=== PATIENT | male | born 1940 | race African-American/Black ===

== ENCOUNTER 2016-05-30 15:06 | Inpatient (IN) | payer OTHER, BC ==
[2016-05-30] MEDS ORDERED: SODIUM CHLORIDE 1,000 ML IV ONE (15:57)
--- NOTE | 2016-05-30 16:02 | PDOC ---
History of Present Illness - General History Source: Patient, Family, Primary Care Provider Exam Limitations: No Limitations - History of Present Illness Initial Comments: 05/30/16 16:26 The patient is a 76 year old male presenting with his , with a significant past medical history of Diabetes, AFIB, HTN, HLD, GERD, anemia and Abdominal hernia, who presents to the emergency department with abdominal pain onset today. He notes that he has a hernia near his umbilical region that protrude today and remained for 2 hours before seeing his PMD, who reduced the hernia, resolving his abdominal pain. His PMD sent him into the ED for further evaluation. He states that he has been able to pass gas. He also states that he had one episode of vomit today after eating some meat. The patient denies chest pain, shortness of breath, headache and dizziness. Denies fever, chills, nausea, vomit, diarrhea and constipation. Denies dysuria, frequency, urgency and hematuria. Allergies: None Past surgical history: Prostate hernia Social history: No alcohol, tobacco or drug use reported PMD - Dr. Hensley <Sheldon Frankel - Last Filed: 05/30/16 16:26> <Tacho Mojica - Last Filed: 05/30/16 16:58> <Chey Krause - Last Filed: 05/30/16 21:44> - General Chief Complaint: Pain, Acute Stated Complaint: ABD PAIN (PCP SENT) Time Seen by Provider: 05/30/16 15:43 Past History <Sheldon Frankel - Last Filed: 05/30/16 16:26> - Past Medical History Anemia: Yes Asthma: No Cancer: No Cardiac Disorders: Yes (a fib) CVA: No COPD: No CHF: No Dementia: No Diabetes: Yes (NIDDM) GI Disorders: Yes (GERD) Disorders: No HTN: Yes Hypercholesterolemia: Yes Liver Disease: No Seizures: No Thyroid Disease: No - Immunization History Immunization Up to Date: Yes - Psycho/Social/Smoking Cessation Hx Suicidal Ideation: No Smoking Status: No Smoking History: Never smoked Have you smoked in the past 12 months: No Number of Cigarettes Smoked Daily: 0 Hx Alcohol Use: No Drug/Substance Use Hx: No Substance Use Type: None Hx Substance Use Treatment: No <Tacho Mojica - Last Filed: 05/30/16 16:58> <Chey Krause - Last Filed: 05/30/16 21:44> - Past Medical History Allergies/Adverse Reactions: Allergies Allergy/AdvReac Type Severity Reaction Status Date / Time No Known Allergies Allergy Verified 05/30/16 15:10 Home Medications: Ambulatory Orders Rabeprazole Sodium [Aciphex (Nf) 20 MG] 20 mg NR DAILY #0 tablet.ec 06/02/11 Rosuvastatin [Crestor -] 10 mg PO HS #0 tablet 06/02/11 Warfarin Na [Coumadin] 4 mg PO DAILY #0 tablet 06/02/11 Cholecalciferol (Vitamin D3) [Vitamin D3] 2,000 unit PO DAILY 05/30/16 Cyanocobalamin [Vitamin B12 -] 1,000 mcg PO DAILY 05/30/16 Ferrous Sulfate 325 mg PO DAILY 05/30/16 Metoprolol Succinate [Toprol Xl -] 25 mg PO DAILY 05/30/16 Nebivolol [Bystolic -] 5 mg PO DAILY 05/30/16 Review of Systems - Review of Systems Constitutional: No: Chills, Fever Cardiac (ROS): No: Chest Pain ABD/GI: Yes: See HPI, Nausea, Vomiting All Other Systems: Reviewed and Negative <Tacho Mojica - Last Filed: 05/30/16 16:58> *Physical Exam - Vital Signs Last Vital Signs Temp Pulse Resp BP Pulse Ox 97.6 F 57 L 20 135/87 96 05/30/16 15:10 05/30/16 15:10 05/30/16 15:10 05/30/16 15:10 05/30/16 15:10 - Physical Exam Comments: 05/30/16 16:26 GENERAL: The patient is awake, alert, and fully oriented, in no acute distress. HEAD: Normal with no signs of trauma. EYES: Pupils equal, round and reactive to light, extraocular movements intact, sclera anicteric, conjunctiva clear with no pallor. ENT: Ears normal, nares patent, oropharynx clear without exudates. Moist mucous membranes. NECK: Normal range of motion, supple without lymphadenopathy, JVD, or masses. LUNGS: Breath sounds equal, clear to auscultation bilaterally. No wheeze/ crackles. HEART: Regular rate and rhythm, normal S1 and S2 without murmur or rub. ABDOMEN: +Healed incision scar in abdomen from prior robotic surgery Superficial surgical scar with palpable ventral wall hernia which is reducible at bedside. Soft/nontender/nondistended. BS wnl. No guarding or rebound. No hepatosplenomegaly. EXTREMITIES: Normal range of motion, no edema. No clubbing or cyanosis. No cords , erythema, or tenderness. NEUROLOGICAL: Cranial nerves II through XII grossly intact. Normal speech, normal gait. PSYCH: Normal mood, normal affect. SKIN: Warm, Dry, normal turgor, no rashes or lesions noted. <Sheldon Frankel - Last Filed: 05/30/16 16:26> - Vital Signs Last Vital Signs Temp Pulse Resp BP Pulse Ox 97.6 F 57 L 20 135/87 96 05/30/16 15:10 05/30/16 15:10 05/30/16 15:10 05/30/16 15:10 05/30/16 15:10 <Tacho Mojica - Last Filed: 05/30/16 16:58> - Vital Signs Last Vital Signs Temp Pulse Resp BP Pulse Ox 98.6 F 51 L 16 153/83 97 05/30/16 19:42 05/30/16 19:42 05/30/16 19:42 05/30/16 19:42 05/30/16 19:42 <Chey Krause - Last Filed: 05/30/16 21:44> ED Treatment Course - LABORATORY CBC & Chemistry Diagram: 05/30/16 16:35 05/30/16 16:35 - RADIOLOGY Radiology Studies Ordered: Category Date Time Status ABDOMEN & PELVIS CT WITH CONTR [CT] Stat CT Scan 05/30/16 15:57 Ordered <Tacho Mojica - Last Filed: 05/30/16 16:58> - LABORATORY CBC & Chemistry Diagram: 05/30/16 16:35 05/30/16 16:35 - ADDITIONAL ORDERS Additional order review: Laboratory Results 05/30/16 05/30/16 05/30/16 19:00 16:35 16:35 INR 3.67 H Sodium Potassium Chloride Carbon Dioxide Anion Gap BUN Creatinine Creat Clearance w eGFR Random Glucose Calcium Total Bilirubin AST ALT Alkaline Phosphatase Total Protein Albumin Lipase Blood Type B POSITIVE B POSITIVE Antibody Screen Negative 05/30/16 16:35 INR Sodium 141 Potassium 4.1 Chloride 104 Carbon Dioxide 28 Anion Gap 9 BUN 20 H Creatinine 1.2 Creat Clearance w eGFR 59.18 Random Glucose 123 H D Calcium 9.2 Total Bilirubin 0.6 D AST 26 ALT 30 D Alkaline Phosphatase 61 D Total Protein 7.4 Albumin 3.9 Lipase 153 Blood Type Antibody Screen 05/30/16 16:35 RBC 4.87 MCV 91.0 MCHC 33.4 RDW 16.0 H MPV 8.5 Neutrophils % 75.3 D Lymphocytes % 16.9 D Monocytes % 6.4 Eosinophils % 0.8 Basophils % 0.6 - Medications Given in the ED: ED Medications Discontinued Medications Generic Name Dose Route Start Last Admin Trade Name Freq PRN Reason Stop Dose Admin Sodium Chloride 1,000 mls @ 1,000 mls/hr 05/30/16 15:57 05/30/16 17:09 Normal Saline - IV 05/30/16 16:56 1,000 mls/hr ONCE ONE Administration <Chey Krause - Last Filed: 05/30/16 21:44> Medical Decision Making - Medical Decision Making 05/30/16 16:00 A portion of this note was documented by scribe services under my direction. I have reviewed the details of the note, within reason, and agree with the documentation with the following case summary and management plan written by me. 76-year-old male with history of robotic prostate surgery presents from Dr. Hensley's office for further evaluation of likely incarcerated ventral wall hernia. Patient had acute onset of painful swelling to his abdomen around 1 PM, persistent until he presented to Dr. Hensley's office and the hernia was reduced. During that time, developed symptoms of nausea/vomiting with persistent pain, now resolved. Vital signs normal. Exam as noted with spontaneous ventral wall hernia that is reducible. No peritoneal findings at this time. 76-year-old male with presentation concerning for incarcerated ventral wall hernia, now reduced and Dr. Hensley's office. labs including lactate CTAP surgery consult/dispo 05/30/16 16:44 Discussed with Surgical PA, will consult. WBC normal. 05/30/16 16:58 Plan with Surgical PA Cadan is to f/u CTAP, discuss dispo with Dr. Olmstead, who is aware of the case. Pt signed out to oncoming ED physician to f/u the results, reassess the patient , and discuss plan with Dr. Olmstead. <Tacho Mojica - Last Filed: 05/30/16 16:58> *DC/Admit/Observation/Transfer - Attestations Scribe Attestion: 05/30/16 16:27 Documentation prepared by Sheldon Frankel, acting as medical safety director for Tacho Mojica MD. <Sheldon Frankel - Last Filed: 05/30/16 16:26> <Tacho Mojica - Last Filed: 05/30/16 16:58> - Discharge Dispostion Admit: Yes <Chey Krause - Last Filed: 05/30/16 21:44> Diagnosis at time of Disposition: Abdominal wall hernia - Referrals Referrals: Paresh Hensley MD [Primary Care Provider] -
[2016-05-30 16:45] LABS: BASOPHIL 0.6 % (0-2.0); EOSINOPHIL 0.8 % (0-4.5); MCH 30.4 pg (25.7-33.7); MCHC 33.4 g/dl (32.0-35.9); MEAN PLT VOLUME 8.5 fl (7.5-11.1); NEUTROPHILS 75.3 % (42.8-82.8); PLATELET COUNT 178 K/MM3 (134-434); WHITE BLOOD COUNT 6.2 K/mm3 (4.0-10.0)
[2016-05-30 17:00] LABS: INR 3.67 (0.82-1.09); PROTHROMBIN TIME (PATIENT) 41.4 SEC (9.98-11.88)
[2016-05-30 17:29] LABS: ALBUMIN 3.9 g/dl (3.4-5.0); BILIRUBIN,TOTAL 0.6 mg/dL (0.2-1.0); CALCIUM 9.2 mg/dL (8.5-10.1); CREATININE 1.2 mg/dL (0.7-1.3); TOT PROT 7.4 g/dl (6.4-8.2)
[2016-05-30] MEDS ORDERED: ONDANSETRON *ODT* 4 MG TABLET SL PRN (21:22)
[2016-05-30] MEDS ORDERED: ACETAMINOPHEN 325 MG TABLET (FP) PO PRN (21:22)
[2016-05-30] MEDS ORDERED: morphine CARPU-JECT 4 MG/1 ML DISP.SYRIN IVPUSH PRN (21:22)
[2016-05-30] MEDS: ROSUVASTATIN CA 10 MG TABLET (FP) PO SCH (23:05)
[2016-05-31 02:14] LABS: MCH 30.4 pg (25.7-33.7); MCHC 33.2 g/dl (32.0-35.9); MEAN CELL VOLUME 91.6 fl (80-96); MEAN PLT VOLUME 8.2 fl (7.5-11.1); PLATELET COUNT 139 K/MM3 (134-434); WHITE BLOOD COUNT 6.2 K/mm3 (4.0-10.0)
[2016-05-31 02:29] LABS: INR 3.69 (0.82-1.09); PROTHROMBIN TIME (PATIENT) 41.7 SEC (9.98-11.88)
[2016-05-31 03:08] VITALS: BMI 35.0
[2016-05-31] MEDS: PANTOPRAZOLE 40 MG TABLET (FP) PO SCH (09:26)
[2016-05-31] MEDS ORDERED: NEBIVOLOL 5 MG TABLET (FP) PO SCH (10:00)
--- NOTE | 2016-05-31 10:04 | HP ---
Admitting History and Physical - Primary Care Physician PCP: Paresh Hensley - Admission History of Present Illness: 05/30/16 16:26 The patient is a 76 year old male presenting with his , with a significant past medical history of Diabetes, AFIB, HTN, HLD, GERD, anemia and Abdominal hernia, who presents to the emergency department with abdominal pain onset today. He notes that he has a hernia near his umbilical region that protrude today and remained for 2 hours before seeing his PMD, who reduced the hernia, resolving his abdominal pain. His PMD sent him into the ED for further evaluation. He states that he has been able to pass gas. He also states that he had one episode of vomit today after eating some meat. The patient denies chest pain, shortness of breath, headache and dizziness. Denies fever, chills, nausea, vomit, diarrhea and constipation. Denies dysuria, frequency, urgency and hematuria. Allergies: None Past surgical history: Prostate hernia Social history: No alcohol, tobacco or drug use reported PMD - Dr. Hensley in ER the hernia was reduced again by ER doctor per patinet and no more pain, patient didnot take couamdin yesterday History Source: Patient - Past Medical History Cardiovascular: Yes: AFIB, HTN, Hyperlipdemia Gastrointestinal: Yes: GERD, Other (hernia) - Past Surgical History Additional Past Surgical History: robotic prostate surgery - Smoking History Smoking history: Never smoked Have you smoked in the past 12 months: No Aproximately how many cigarettes per day: 0 - Alcohol/Substance Use Hx Alcohol Use: No Home Medications - Allergies Allergies/Adverse Reactions: Allergies Allergy/AdvReac Type Severity Reaction Status Date / Time No Known Allergies Allergy Verified 05/30/16 15:10 - Home Medications Home Medications: Ambulatory Orders Rabeprazole Sodium [Aciphex (Nf) 20 MG] 20 mg NR DAILY #0 tablet.ec 06/02/11 Rosuvastatin [Crestor -] 10 mg PO HS #0 tablet 06/02/11 Warfarin Na [Coumadin] 4 mg PO DAILY #0 tablet 06/02/11 Cholecalciferol (Vitamin D3) [Vitamin D3] 2,000 unit PO DAILY 05/30/16 Cyanocobalamin [Vitamin B12 -] 1,000 mcg PO DAILY 05/30/16 Ferrous Sulfate 325 mg PO DAILY 05/30/16 Metoprolol Succinate [Toprol Xl -] 25 mg PO DAILY 05/30/16 Nebivolol [Bystolic -] 5 mg PO DAILY 05/30/16 Review of Systems - Review of Systems Respiratory: reports: No Symptoms Gastrointestinal: reports: No Symptoms Genitourinary: reports: No Symptoms Physical Examination Vital Signs: Vital Signs Temperature 97.8 F 05/30/16 21:44 Pulse Rate 50 L 05/30/16 21:44 Respiratory Rate 20 05/30/16 21:44 Blood Pressure 148/86 05/30/16 21:44 O2 Sat by Pulse Oximetry (%) 97 05/30/16 21:44 Constitutional: Yes: Calm Cardiovascular: Yes: Regular Rate and Rhythm, S1, S2 Respiratory: Yes: CTA Bilaterally Gastrointestinal: Yes: Normal Bowel Sounds, Soft, Hernia (reduced), Other (no tednerness) Edema: No Neurological: Yes: Alert, Oriented Labs: CBC, BMP 05/31/16 02:02 Imaging - Results Cat Scan: Report Reviewed (small loop of bowel in left supraumbilcal hernia not incarcerated) Problem List - Problems (1) Abdominal wall hernia Assessment/Plan: cardiac clearance will need to be NPO once he is on surgical list hold coumadin surgical eval Code(s): K43.9 - VENTRAL HERNIA WITHOUT OBSTRUCTION OR GANGRENE (2) Hypertension Assessment/Plan: bystolic Code(s): I10 - ESSENTIAL (PRIMARY) HYPERTENSION (3) Chronic a-fib Assessment/Plan: rate control bystolic hold couamdin let it drift down Code(s): I48.2 - CHRONIC ATRIAL FIBRILLATION (4) Hyperlipidemia Assessment/Plan: statin Code(s): E78.5 - HYPERLIPIDEMIA, UNSPECIFIED
--- NOTE | 2016-05-31 15:40 | CONSULT ---
Consult Consult Specialty:: Thoracic Surgery Referred by:: Dr. Paresh Hensley Reason for Consultation:: Hiatal hernia - History of Present Illness Chief Complaint: Abdominal pain History of Present Illness: A 76-year-old male with history of atrial fibrillation, on Coumadin, who initially presented to [facility] with abdominal pain. He was found to have abdominal hernia which was reduced by Dr. Hensley. He was admitted to [facility] for surgical evaluation. His workup including CT abd/pel confirmed abdominal hernia with incarcerated small bowel. He was also noticed to have hiatal hernia. He reports that he has been doing relatively well except mild GERD in which he is taking PPI for symptomatic relief. He denies f/c, n/v, constipation, bowel habit changes, SOB, GERBER, cough, sputum production, wheezing, weight loss, and chest pain. - History Source History Provided By: Patient Limitations to Obtaining History: No Limitations - Past Medical History Cardio/Vascular: Yes: AFIB, HTN, Hyperlipdemia Gastrointestinal: Yes: GERD, Other (hernia) Hepatobiliary: No: Cirrhosis, Cholelithiasis, Cholecystitis, Choledocholithiasis , Hepatitis A, Hepatitis B, Hepatitis C, Other Renal/: No: Renal Failure, Renal Inusuff, BPH, Cancer, Hematuria, Hemodialysis , Neurogenic Bladder, Renal Calculi, UTI, Other Heme/Onc: No: Anemia, B12 Deficiency, Bleeding Disorder, Cancer, Current Chemotherapy, Current Radiation Therapy, Hemochromatosis, Hypercoaguable State, Myeloproliferative Synd, Sickle Cell Disease, Sickle Cell Trait, Thrombocytopenia, Other Infectious Disease: No: AIDS, C-Diff, Herpes Zoster, HIV, MRSA, STD's, Tuberculosis, VREF, Other Psych: No: Addictions, Anxiety, Bipolar, Depression, Panic, Psychosis, Schizophrenia, Other Musculoskeletal: No: Bursitis, Chronic low back pain, Hemiparesis, Hemiplegia, Osteoarthritis, Paraplegia, Other Rheumatology: No: Fibromyalgia, Gout, Lupus, Rheumatoid Arthritis, Sarcoidosis, Vasculitis, Other ENT: No: Allergic Rhinitis, Sinusitis, Other Endocrine: No: Cook's Disease, Margarito's Disease, Diabetes Insipidus, Diabetes Mellitus, Hyperparathyroidism, Hyperthyroidism, Hypothyroidism, Osteopenia, SIADH, Other Dermatology: No: Basal Cell, Cellulitis, Eczema, Melanoma, Psoriasis, Squamous Cell, Other - Past Surgical History Past Surgical History: Yes: Prostatectomy (robotic-assisted prostatectomy at (2013)) - Alcohol/Substance Use Hx Alcohol Use: No - Smoking History Smoking history: Never smoked Have you smoked in the past 12 months: No Aproximately how many cigarettes per day: 0 - Social History Usual Living Arrangement: With Spouse Home Medications - Allergies Allergies/Adverse Reactions: Allergies Allergy/AdvReac Type Severity Reaction Status Date / Time No Known Allergies Allergy Verified 05/30/16 15:10 - Home Medications Home Medications: Ambulatory Orders Rabeprazole Sodium [Aciphex (Nf) 20 MG] 20 mg NR DAILY #0 tablet.ec 06/02/11 Rosuvastatin [Crestor -] 10 mg PO HS #0 tablet 06/02/11 Warfarin Na [Coumadin] 4 mg PO DAILY #0 tablet 06/02/11 Cholecalciferol (Vitamin D3) [Vitamin D3] 2,000 unit PO DAILY 05/30/16 Cyanocobalamin [Vitamin B12 -] 1,000 mcg PO DAILY 05/30/16 Ferrous Sulfate 325 mg PO DAILY 05/30/16 Metoprolol Succinate [Toprol Xl -] 25 mg PO DAILY 05/30/16 Nebivolol [Bystolic -] 5 mg PO DAILY 05/30/16 Family Disease History - Family Disease History Family History: Unremarkable Review of Systems - Review of Systems Constitutional: reports: No Symptoms Eyes: reports: No Symptoms HENT: reports: No Symptoms Neck: reports: No Symptoms Cardiovascular: reports: No Symptoms Respiratory: reports: No Symptoms Gastrointestinal: reports: Abdominal Pain, Bloating, Other (GERD) Genitourinary: denies: No Symptoms, Burning, Discharge, Dysuria, Flank Pain, Frequency, Hematuria, Incontinence, Lesions, Menses, Pain, Testicular Mass, Testicular Pain, Testicular Swelling, Urgency, Vaginal Bleeding, Other Breasts: reports: No Symptoms Reported Musculoskeletal: reports: No Symptoms Integumentary: reports: No Symptoms Neurological: reports: No Symptoms Endocrine: reports: No Symptoms Hematology/Lymphatic: reports: Easily Bruised (on Coumadin) Psychiatric: reports: No Symptoms Physical Exam Vital Signs: Vital Signs Temperature 98.0 F 05/31/16 14:00 Pulse Rate 67 05/31/16 14:00 Respiratory Rate 17 05/31/16 14:00 Blood Pressure 113/74 05/31/16 09:00 O2 Sat by Pulse Oximetry (%) 97 05/30/16 21:44 Constitutional: Yes: No Distress Eyes: Yes: WNL HENT: Yes: WNL Neck: Yes: WNL Cardiovascular: Yes: WNL Respiratory: Yes: WNL Gastrointestinal: Yes: Soft, Abdomen, Obese, Palpable Mass (abdominal hernia), Tenderness ...Rectal Exam: Yes: Deferred Renal/: Yes: WNL Musculoskeletal: Yes: WNL Extremities: Yes: WNL Edema: No Integumentary: Yes: WNL Neurological: Yes: WNL Psychiatric: Yes: WNL Labs: CBC, BMP 05/31/16 02:02 Imaging - Results Chest X-ray: Report Reviewed, Image Reviewed Cat Scan: Report Reviewed, Image Reviewed Problem List - Problems (1) Hiatal hernia Assessment/Plan: A 76-year-old male with history of atrial fibrillation, on Coumadin, GERD and hiatal hernia, who presented to [facility] with abdominal hernia with incarcerated small bowel. His radiographic studies ([id number]) and laboratory results were reviewed and discussed with the patient and his in extensive detail. He appears to have chronic paraesophageal hernia (Type III) with mild reflux symptoms which is well controlled with medication. He was given multiple options including close observation with serial CT scans, endoscopy, and conservative medical treatment and definitive surgical management ( paraesophageal hernia repair and Jaime fundoplication). He wished to resolve abdominal hernia first on this hospital admission. He is aware and understood his medical and surgical condition. All questions were answered in satisfactory manner. He remains stable clinically with no sepsis or respiratory distress at the present time. 1. Continue supportive care 2. f/u general surgery for abdominal hernia 3. Discussed with Dr. Hensley 4. Thank you for the interesting consult. Please call Thoracic Surgery service for further surgical issues. Code(s): K44.9 - DIAPHRAGMATIC HERNIA WITHOUT OBSTRUCTION OR GANGRENE
--- NOTE | 2016-05-31 16:09 | CONSULT ---
[id number] patient for an incarcerated incisional hernia. HISTORY OF PRESENT ILLNESS: 76 yo M presented to the ED complaining of abdominal pain for one day. The pain was located in at the site of a previous incision from a robotic prostatectomy near the patient's umbilicus. The patient states he has had this hernia and it usually reduces on its own. Prior to coming to the ED the patient noticed the hernia had a large bulge, was very firm and painful. The patient saw Dr. Hensley in the office and had the hernia reduced before going to the ED for further evaluation. The pain resolved when the hernia was reduced. The patient states he is not passing gas, denies nausea , vomiting, diarrhea, constipation. The patient states he would like to have this hernia fixed and understands the risk of having bowel within the hernia. PMH: DM, AFIB, HTN, HLD, GERD, anemia PSH: Robotic-assisted prostatectomy 2012 Social history: No alcohol, tobacco or drug use reported PMD - Dr. Hensley Allergies: NKDA Medications: Medication Instructions Recorded Rabeprazole Sodium [Aciphex (Nf) 20 mg NR DAILY #0 tablet.ec 06/02/11 20 MG] Rosuvastatin [Crestor -] 10 mg PO HS #0 tablet 06/02/11 Warfarin Na [Coumadin] 4 mg PO DAILY #0 tablet 06/02/11 Cholecalciferol (Vitamin D3) 2,000 unit PO DAILY 05/30/16 [Vitamin D3] Cyanocobalamin [Vitamin B12 -] 1,000 mcg PO DAILY 05/30/16 Ferrous Sulfate 325 mg PO DAILY 05/30/16 Metoprolol Succinate [Toprol Xl -] 25 mg PO DAILY 05/30/16 Nebivolol [Bystolic -] 5 mg PO DAILY 05/30/16 REVIEW OF SYSTEMS: CONSTITUTIONAL: Absent: fever, chills, diaphoresis, generalized weakness, malaise, loss of appetite, weight change CARDIOVASCULAR: Absent: chest pain, syncope, lightheadedness, peripheral edema RESPIRATORY: Absent: cough, shortness of breath, dyspnea with exertion, orthopnea, wheezing, stridor, hemoptysis GASTROINTESTINAL: Absent: abdominal distension, nausea, vomiting, diarrhea, constipation, melena, hematochezia GENITOURINARY: Absent: dysuria, frequency, urgency, hesitancy, hematuria, flank pain, genital pain MUSCULOSKELETAL: Absent: myalgia, arthralgia, joint swelling, back pain, neck pain SKIN: Absent: rash, itching, pallor HEMATOLOGIC/IMMUNOLOGIC: Absent: easy bleeding, easy bruising, lymphadenopathy, frequent infections NEUROLOGIC: Absent: headache, focal weakness or paresthesias, dizziness, unsteady gait, seizure, mental status changes, bladder or bowel incontinence PSYCHIATRIC: Absent: anxiety, depression, suicidal or homicidal ideation, hallucinations. PHYSICAL EXAMINATION Vital Signs Temperature 98.0 F 05/31/16 14:00 Pulse Rate 67 05/31/16 14:00 Respiratory Rate 05/31/16 14:00 Blood Pressure 113/74 05/31/16 09:00 O2 Sat by Pulse Oximetry (%) 97 05/30/16 21:44 GENERAL: Awake, alert, and fully oriented, in no acute distress. HEAD: Normal with no signs of trauma. EYES: Pupils equal, round and reactive to light, sclera anicteric, conjunctiva clear. NECK: Normal range of motion, supple without lymphadenopathy, JVD, or masses. LUNGS: Breath sounds equal, clear to auscultation bilaterally. No wheezes, and no crackles. No accessory muscle use. HEART: Regular rate and rhythm, normal S1 and S2 without murmur, rub or gallop. ABDOMEN: Well-healed port site/incision scars from previous prostatectomy, reduced hernia, soft, nontender, not distended, normoactive bowel sounds, no guarding, no rebound, no masses. MUSCULOSKELETAL: Normal range of motion at all joints. No bony deformities or tenderness. No CVA tenderness. UPPER EXTREMITIES: 2+ pulses, warm, well-perfused. No cyanosis. Cap refill <2 seconds. No peripheral edema. LOWER EXTREMITIES: Warm, well-perfused. No calf tenderness. No peripheral edema. NEUROLOGICAL: Normal speech, gait not observed. PSYCH: Cooperative. Good eye contact. Appropriate mood and affect. SKIN: Warm, dry, normal turgor, no rashes or lesions noted. LABS: Laboratory Results - last 24 hr 05/31/16 05/31/16 02:02 02:02 WBC 6.2 RBC 4.60 Hgb 14.0 Hct 42.1 MCV 91.6 MCHC 33.2 RDW 16.0 H Plt Count 139 D MPV 8.[address]: Moderate-sized hiatal hernia- Patient seen by Dr. Parks Small bowel loop within supraumbilical ventral hernia <Lizzie Stephenson - Last Filed: 05/31/16 16:38> Consultation: REQUESTING PROVIDER: CONSULT REQUEST: We have been asked to surgically evaluate this patient for ( specify). HISTORY OF PRESENT ILLNESS: REVIEW OF SYSTEMS: CONSTITUTIONAL: Absent: fever, chills, diaphoresis, generalized weakness, malaise, loss of appetite, weight change CARDIOVASCULAR: Absent: chest pain, syncope, palpitations, irregular heart rate, lightheadedness , peripheral edema RESPIRATORY: Absent: cough, shortness of breath, dyspnea with exertion, orthopnea, wheezing, stridor, hemoptysis GASTROINTESTINAL: Absent: abdominal pain, abdominal distension, nausea, vomiting, diarrhea, constipation, melena, hematochezia GENITOURINARY: Absent: dysuria, frequency, urgency, hesitancy, hematuria, flank pain, genital pain MUSCULOSKELETAL: Absent: myalgia, arthralgia, joint swelling, back pain, neck pain SKIN: Absent: rash, itching, pallor HEMATOLOGIC/IMMUNOLOGIC: Absent: easy bleeding, easy bruising, lymphadenopathy, frequent infections NEUROLOGIC: Absent: headache, focal weakness or paresthesias, dizziness, unsteady gait, seizure, mental status changes, bladder or bowel incontinence PSYCHIATRIC: Absent: anxiety, depression, suicidal or homicidal ideation, hallucinations. PHYSICAL EXAMINATION Vital Signs Temperature 98.1 F 06/01/16 09:00 Pulse Rate 50 L 06/01/16 09:00 Respiratory Rate 20 06/01/16 09:00 Blood Pressure 108/70 06/01/16 09:00 O2 Sat by Pulse Oximetry (%) 97 05/31/16 22:00 GENERAL: Awake, alert, and fully oriented, in no acute distress. HEAD: Normal with no signs of trauma. EYES: Pupils equal, round and reactive to light, sclera anicteric, conjunctiva clear. NECK: Normal range of motion, supple without lymphadenopathy, JVD, or masses. LUNGS: Breath sounds equal, clear to auscultation bilaterally. No wheezes, and no crackles. No accessory muscle use. HEART: Regular rate and rhythm, normal S1 and S2 without murmur, rub or gallop. ABDOMEN: Soft, nontender, not distended, normoactive bowel sounds, no guarding, no rebound, no masses. No hepatomegaly or splenomegaly. MUSCULOSKELETAL: Normal range of motion at all joints. No bony deformities or tenderness. No CVA tenderness. UPPER EXTREMITIES: 2+ pulses, warm, well-perfused. No cyanosis. Cap refill <2 seconds. No peripheral edema. LOWER EXTREMITIES: 2+ pulses, warm, well-perfused. No calf tenderness. No peripheral edema. NEUROLOGICAL: Normal speech, gait not observed. PSYCH: Cooperative. Good eye contact. Appropriate mood and affect. SKIN: Warm, dry, normal turgor, no rashes or lesions noted. LABS: Laboratory Results - last 24 hr 06/01/16 07:15 INR 2.80 H SURGERY ATTENDING Patient seen and examined. Agree wit TEE Stephenson's evaluation and assessment. <Mayo Olmstead - Last Filed: 06/01/16 11:46> Problem List - Problems (1) Abdominal wall hernia Assessment/Plan: Ventral incisional hernia containing small bowel OR for robotic incisional hernia repair with Dr. Olmstead, possibly Monday06/03/16 OR once INR less than 2, continue to hold Coumadin, follow INR Cardiac/medical clearance/optimization Consent to be obtained Continue sodium controlled diet until night prior to surgery Patient seen and examined with Dr. Olmstead Code(s): K43.9 - VENTRAL HERNIA WITHOUT OBSTRUCTION OR GANGRENE <Lizzie Stephenson - Last Filed: 05/31/16 16:38> Visit type - Case Type Case Type: ED Admission <Lizzie Stephenson - Last Filed: 05/31/16 16:38>
[2016-05-31] MEDS ORDERED: PT OWN MED DRAWER 7, Y5N ONE (20:54)
[2016-05-31] MEDS: ROSUVASTATIN CA 10 MG TABLET (FP) PO SCH (21:49)
[2016-05-31] MEDS: NEBIVOLOL 5 MG TABLET (FP) PO SCH (21:49)
--- NOTE | 2016-05-31 22:30 | CON.CARD ---
Consult Consult Specialty:: Cardiology Referred by:: Dr. Hensley Reason for Consultation:: Cardiac evaluation and cardiac clearance - History of Present Illness Chief Complaint: Abdominal ventral hernia History of Present Illness: Patient is a 76 year old male well known to our service with underlying history of paroxysmal atrial fibrillation, type 2 diabetes mellitus, hypertension, hypercholesterolemia and GERD who presents with abdominal hernia. Patient presented with abdominal pain and a hernia near the umbilicus which was reduced by Dr. Hensley today. He denies chest pain, shortness of breath or palpitation. He denies paroxysmal nocturnal dyspnea or orthopnea. Denies fever or chills. Denies headache or lightheadedness. Cardiology consultation was called for further evaluation and for cardiac clearance. - History Source History Provided By: Patient, Medical Record Limitations to Obtaining History: No Limitations - Past Medical History Cardio/Vascular: Yes: AFIB, CAD, HTN, Hyperlipdemia Gastrointestinal: Yes: GERD, Other (hernia) Endocrine: Yes: Diabetes Mellitus - Past Surgical History Past Surgical History: Yes: Prostatectomy (robotic-assisted prostatectomy at [facility] (2013)) - Alcohol/Substance Use Hx Alcohol Use: No - Smoking History Smoking history: Never smoked Have you smoked in the past 12 months: No Aproximately how many cigarettes per day: 0 - Social History Usual Living Arrangement: With Spouse Home Medications - Allergies Allergies/Adverse Reactions: Allergies Allergy/AdvReac Type Severity Reaction Status Date / Time No Known Allergies Allergy Verified 05/30/16 15:10 - Home Medications Home Medications: Ambulatory Orders Rabeprazole Sodium [Aciphex (Nf) 20 MG] 20 mg NR DAILY #0 tablet.ec 06/02/11 Rosuvastatin [Crestor -] 10 mg PO HS #0 tablet 06/02/11 Warfarin Na [Coumadin] 4 mg PO DAILY #0 tablet 06/02/11 Cholecalciferol (Vitamin D3) [Vitamin D3] 2,000 unit PO DAILY 05/30/16 Cyanocobalamin [Vitamin B12 -] 1,000 mcg PO DAILY 05/30/16 Ferrous Sulfate 325 mg PO DAILY 05/30/16 Metoprolol Succinate [Toprol Xl -] 25 mg PO DAILY 05/30/16 Nebivolol [Bystolic -] 5 mg PO DAILY 05/30/16 Family Disease History - Family Disease History Family History: Denies Review of Systems - Review of Systems Constitutional: denies: Chills, Fever Cardiovascular: denies: Chest Pain, Palpitations, Shortness of Breath Respiratory: denies: Cough, Hemoptysis, Orthopnea, PND, SOB, SOB on Exertion Gastrointestinal: reports: Abdominal Pain, Vomiting. denies: Constipation, Diarrhea, Nausea, Rectal Bleeding, Vomiting Blood Neurological: denies: Dizziness, Headache, Seizure, Syncope Vital Signs: Vital Signs Temperature 98.0 F 05/31/16 14:00 Pulse Rate 67 05/31/16 14:00 Respiratory Rate 17 05/31/16 14:00 Blood Pressure 113/74 05/31/16 09:00 O2 Sat by Pulse Oximetry (%) 97 05/30/16 21:44 Neck: Yes: Supple Respiratory: Yes: CTA Bilaterally Gastrointestinal: Yes: Normal Bowel Sounds, Soft. No: Tenderness Cardiovascular: Yes: Regular Rate and Rhythm JVD: No Carotid Bruit: No PMI: Non-Displaced Heart Sounds: Yes: S1, S2 Murmur: No: Systolic Murmur Edema: No - Other Data Labs, Other Data: CBC, BMP 05/31/16 02:02 INR, PTT INR 3.69 (0.82-1.09) H 05/31/16 02:02 Laboratory Results - last 24 hr 05/31/16 05/31/16 02:02 02:02 WBC 6.2 RBC 4.60 Hgb 14.0 Hct 42.1 MCV 91.6 MCHC 33.2 RDW 16.0 H Plt Count 139 D MPV 8.2 INR 3.69 H CBC,CMP WBC 6.2 K/mm3 (4.0-10.0) 05/31/16 02:02 RBC 4.60 M/mm3 (4.00-5.60) 05/31/16 02:02 Hgb 14.0 GM/dL (11.7-16.9) 05/31/16 02:02 Hct 42.1 % (35.4-49) 05/31/16 02:02 MCV 91.6 fl (80-96) 05/31/16 02:02 MCHC 33.2 g/dl (32.0-35.9) 05/31/16 02:02 RDW 16.0 % (11.9-15.9) H 05/31/16 02:02 Plt Count 139 K/MM3 (134-434) D 05/31/16 02:02 MPV 8.2 fl (7.5-11.1) 05/31/16 02:02 Neutrophils % 75.3 % (42.8-82.8) D 05/30/16 16:35 Lymphocytes % 16.9 % (8-40) D 05/30/16 16:35 Monocytes % 6.4 % (3.8-10.2) 05/30/16 16:35 Eosinophils % 0.8 % (0-4.5) 05/30/16 16:35 Basophils % 0.6 % (0-2.0) 05/30/16 16:35 Sodium 141 mmol/L (136-145) 05/30/16 16:35 Potassium 4.1 mmol/L (3.5-5.1) 05/30/16 16:35 Chloride 104 mmol/L (98-107) 05/30/16 16:35 Carbon Dioxide 28 mmol/L (21-32) 05/30/16 16:35 Anion Gap 9 (8-16) 05/30/16 16:35 BUN 20 mg/dL (7-18) H 05/30/16 16:35 Creatinine 1.2 mg/dL (0.7-1.3) 05/30/16 16:35 Creat Clearance w eGFR 59.18 (>60) 05/30/16 16:35 Random Glucose 123 mg/dL (74-106) H D 05/30/16 16:35 Calcium 9.2 mg/dL (8.5-10.1) 05/30/16 16:35 Total Bilirubin 0.6 mg/dL (0.2-1.0) D 05/30/16 16:35 AST 26 U/L (15-37) 05/30/16 16:35 ALT 30 U/L (12-78) D 05/30/16 16:35 Alkaline Phosphatase 61 U/L (45-117) D 05/30/16 16:35 Total Protein 7.4 g/dl (6.4-8.2) 05/30/16 16:35 Albumin 3.9 g/dl (3.4-5.0) 05/30/16 16:35 Lipase 153 U/L (73-393) 05/30/16 16:35 Sinus rhythm Imaging - Results Cat Scan: Report Reviewed (Abdominal CT hiatal hernia) EKG: Report Reviewed Problem List - Problems (1) Abdominal wall hernia Code(s): K43.9 - VENTRAL HERNIA WITHOUT OBSTRUCTION OR GANGRENE (2) Afib Code(s): I48.91 - UNSPECIFIED ATRIAL FIBRILLATION (3) Hiatal hernia Code(s): K44.9 - DIAPHRAGMATIC HERNIA WITHOUT OBSTRUCTION OR GANGRENE (4) Hyperlipidemia Code(s): E78.5 - HYPERLIPIDEMIA, UNSPECIFIED Qualifiers: Hyperlipidemia type: pure hypercholesterolemia Qualified Code(s): E78.0 - Pure hypercholesterolemia (5) Hypertension Code(s): I10 - ESSENTIAL (PRIMARY) HYPERTENSION Qualifiers: Hypertension type: essential hypertension Qualified Code(s): I10 - Essential (primary) hypertension Assessment/Plan 1. Abdominal hernia 2. Paroxysmal atrial fibrillation 3. HTN 4. Hypercholesterolemia 5. GERD 6. Type 2 diabetes mellitus PLAN: 1. Continue to hold Coumadin and let it drift down before proceeding to surgery. Would not give Vitamin K unless patient is bleeding or surgery is emergent. 2. Continue Bystolic 3. Continue Crestor 4. Surgical input noted Thank you for the consultation Arnold Adler MD
--- NOTE | 2016-05-31 23:12 | EKG ---
Test Reason : Blood Pressure : / mmHG Vent. Rate : 053 BPM Atrial Rate : 053 BPM P-R Int : 252 ms QRS Dur : 138 ms QT Int : 462 ms P-R-T Axes : 018 -29 -09 degrees QTc Int : 433 ms SINUS BRADYCARDIA WITH 1ST DEGREE A-V BLOCK LEFT VENTRICULAR HYPERTROPHY WITH QRS WIDENING ABNORMAL ECG WHEN COMPARED WITH ECG OF 31-MAY-2011 10:52, PREMATURE VENTRICULAR COMPLEXES ARE NO LONGER PRESENT Confirmed by JASEN PAREDES, KYE ([id number]) on 05/31/2016 11:11:47 PM Referred By: Confirmed By:KYE AGGARWAL MD
[2016-06-01 08:15] LABS: INR 2.8 (0.82-1.09); PROTHROMBIN TIME (PATIENT) 31.4 SEC (9.98-11.88)
--- NOTE | 2016-06-01 09:28 | PN ---
Progress Note, Physician - Current Medication List Current Medications: Active Medications Acetaminophen (Tylenol -) 650 mg PO Q6H PRN PRN Reason: FEVER OR PAIN Morphine Sulfate (Morphine Injection -) 4 mg IVPUSH Q3H PRN PRN Reason: PAIN Nebivolol (Bystolic -) 5 mg PO HS [facility] Last Admin: 05/31/16 21:49 Dose: 5 mg Ondansetron HCl (Zofran Odt -) 8 mg SL Q6H PRN PRN Reason: NAUSEA AND/OR VOMITING Pantoprazole Sodium (Protonix -) 40 mg PO DAILY [facility] Last Admin: 05/31/16 09:26 Dose: 40 mg Rosuvastatin Calcium (Crestor -) 10 mg PO [facility] Last Admin: 05/31/16 21:49 Dose: 10 mg - Objective Vital Signs: Vital Signs Temperature 98.0 F 06/01/16 06:00 Pulse Rate 55 L 06/01/16 06:00 Respiratory Rate 20 06/01/16 06:00 Blood Pressure 129/73 06/01/16 06:00 O2 Sat by Pulse Oximetry (%) 97 05/31/16 22:00 Cardiovascular: Yes: Regular Rate and Rhythm Respiratory: Yes: Regular, CTA Bilaterally Gastrointestinal: Yes: Normal Bowel Sounds, Soft Labs: CBC, BMP 05/31/16 02:02 INR, PTT INR 2.80 (0.82-1.09) H 06/01/16 07:15 Problem List - Problems (1) Abdominal wall hernia Assessment/Plan: SURGICAL CONSULT NOTED AND DISCUSSED FOR OR ONCE INR IN RANGE Code(s): K43.9 - VENTRAL HERNIA WITHOUT OBSTRUCTION OR GANGRENE (2) Afib Assessment/Plan: BRIDGE WITH HEPARIN WHEN INR LESS THAN 2 Code(s): I48.91 - UNSPECIFIED ATRIAL FIBRILLATION (3) Hiatal hernia Code(s): K44.9 - DIAPHRAGMATIC HERNIA WITHOUT OBSTRUCTION OR GANGRENE (4) Hyperlipidemia Code(s): E78.5 - HYPERLIPIDEMIA, UNSPECIFIED Qualifiers: Hyperlipidemia type: pure hypercholesterolemia Qualified Code(s): E78.0 - Pure hypercholesterolemia (5) Hypertension Assessment/Plan: CONTROLLED Code(s): I10 - ESSENTIAL (PRIMARY) HYPERTENSION Qualifiers: Hypertension type: essential hypertension Qualified Code(s): I10 - Essential (primary) hypertension
[2016-06-01] MEDS: PANTOPRAZOLE 40 MG TABLET (FP) PO SCH (09:30)
--- NOTE | 2016-06-01 10:27 | PN ---
Progress Note (short form) - Note Progress Note: General Surgery- Dr. Olmstead Patient seen and examined. Patient is doing well, pain has not returned to hernia site. Patient is tolerating his diet without nausea or vomiting. Patient has not had a BM, but is urinating without issue. No complaints. Last Vital Signs Temp Pulse Resp BP Pulse Ox 98.0 F 55 L 20 129/73 97 06/01/16 06:00 06/01/16 06:00 06/01/16 06:00 06/01/16 06:00 05/31/16 22:00 INR, PTT INR 2.80 (0.82-1.09) H 06/01/16 07:15 INR 2.80 from 3.69 yesterday Exam: Gen: NAD, resting comfortably Abd: Soft, nondistended, nontender, hernia still reduced <Lizzie Stephenson - Last Filed: 06/01/16 10:29> - Note Progress Note: Surgery Attending No new complaints. Tolerating diet. Abdomen is soft INR = 2.8 For robotic incisional hernia repair with mesh on 06/03/16 pending acceptable INR. <Mayo Olmstead - Last Filed: 06/01/16 11:43> Problem List - Problems (1) Abdominal wall hernia Assessment/Plan: Continue with plan for OR for robotic incisional hernia repair with Dr. Olmstead when INR in range Continue to hold Coumadin, follow INR Continue sodium controlled diet until night prior to surgery, OR possibly Monday Code(s): K43.9 - VENTRAL HERNIA WITHOUT OBSTRUCTION OR GANGRENE <Lizzie Stephenson - Last Filed: 06/01/16 10:29>
--- NOTE | 2016-06-01 11:36 | PN ---
Progress Note, Physician History of Present Illness: No abd pain, nausea, emesis, tolerating diet. - Current Medication List Current Medications: Active Medications Acetaminophen (Tylenol -) 650 mg PO Q6H PRN PRN Reason: FEVER OR PAIN Morphine Sulfate (Morphine Injection -) 4 mg IVPUSH Q3H PRN PRN Reason: PAIN Nebivolol (Bystolic -) 5 mg PO [facility] Last Admin: 05/31/16 21:49 Dose: 5 mg Ondansetron HCl (Zofran Odt -) 8 mg SL Q6H PRN PRN Reason: NAUSEA AND/OR VOMITING Pantoprazole Sodium (Protonix -) 40 mg PO DAILY [facility] Last Admin: 06/01/16 09:30 Dose: 40 mg Rosuvastatin Calcium (Crestor -) 10 mg PO [facility] Last Admin: 05/31/16 21:49 Dose: 10 mg - Objective Vital Signs: Vital Signs Temperature 98.1 F 06/01/16 09:00 Pulse Rate 50 L 06/01/16 09:00 Respiratory Rate 20 06/01/16 09:00 Blood Pressure 108/70 06/01/16 09:00 O2 Sat by Pulse Oximetry (%) 97 05/31/16 22:00 Constitutional: Yes: No Distress, Calm Neck: Yes: Supple Cardiovascular: Yes: Regular Rate and Rhythm Respiratory: Yes: Regular, CTA Bilaterally Gastrointestinal: Yes: Soft, Hypoactive Bowel Sounds Edema: No Labs: CBC, BMP 05/31/16 02:02 INR, PTT INR 2.80 (0.82-1.09) H 06/01/16 07:15 Problem List - Problems (1) Abdominal wall hernia Code(s): K43.9 - VENTRAL HERNIA WITHOUT OBSTRUCTION OR GANGRENE (2) Afib Code(s): I48.91 - UNSPECIFIED ATRIAL FIBRILLATION Qualifiers: Atrial fibrillation type: paroxysmal Qualified Code(s): I48.0 - Paroxysmal atrial fibrillation (3) Hyperlipidemia Code(s): E78.5 - HYPERLIPIDEMIA, UNSPECIFIED Qualifiers: Hyperlipidemia type: pure hypercholesterolemia Qualified Code(s): E78.0 - Pure hypercholesterolemia (4) Hypertension Code(s): I10 - ESSENTIAL (PRIMARY) HYPERTENSION Qualifiers: Hypertension type: essential hypertension Qualified Code(s): I10 - Essential (primary) hypertension (5) Pre-operative cardiovascular examination Code(s): Z01.810 - ENCOUNTER FOR PREPROCEDURAL CARDIOVASCULAR EXAMINATION Assessment/Plan 1. Pre-op ventral hernia repair 2. Paroxysmal atrial fibrillation 3. HTN 4. Hypercholesterolemia 5. GERD PLAN: 1. Continue to hold Coumadin and let it drift down before proceeding to surgery. Would not give Vitamin K unless patient is bleeding or surgery is emergent. 2. Continue Bystolic 5 qhd 3. Continue Crestor 10 qhs 4. Planned for robotic incisional hernia repair with mesh on 06/03/16 pending acceptable INR.
--- NOTE | 2016-06-01 11:44 | PN ---
Progress Note (short form) - Note Progress Note: Surgery Attending No new complaints. Tolerating diet. Abdomen is soft INR = 2.8 For robotic incisional hernia repair with mesh on 06/03/16 pending acceptable INR.
[2016-06-01] MEDS ORDERED: PT OWN MED DRAWER 7, Y5N ONE (21:17)
[2016-06-01] MEDS: ROSUVASTATIN CA 10 MG TABLET (FP) PO SCH (21:27)
[2016-06-01] MEDS: NEBIVOLOL 5 MG TABLET (FP) PO SCH (21:28)
[2016-06-02] MEDS ORDERED: PT OWN MED DRAWER 7, Y5N ONE ×2 (07:07→21:33)
--- NOTE | 2016-06-02 08:16 | PN ---
Progress Note, Physician Chief Complaint: NO COMPLAINTS TOLERATING PO FEELS BETTER - Current Medication List Current Medications: Active Medications Acetaminophen (Tylenol -) 650 mg PO Q6H PRN PRN Reason: FEVER OR PAIN Morphine Sulfate (Morphine Injection -) 4 mg IVPUSH Q3H PRN PRN Reason: PAIN Nebivolol (Bystolic -) 5 mg PO [facility] Last Admin: 06/01/16 21:28 Dose: 5 mg Ondansetron HCl (Zofran Odt -) 8 mg SL Q6H PRN PRN Reason: NAUSEA AND/OR VOMITING Pantoprazole Sodium (Protonix -) 40 mg PO DAILY [facility] Last Admin: 06/01/16 09:30 Dose: 40 mg Rosuvastatin Calcium (Crestor -) 10 mg PO [facility] Last Admin: 06/01/16 21:27 Dose: 10 mg - Objective Vital Signs: Vital Signs Temperature 97.7 F 06/01/16 18:00 Pulse Rate 55 L 06/01/16 18:00 Respiratory Rate 20 06/01/16 21:00 Blood Pressure 111/71 06/01/16 18:00 O2 Sat by Pulse Oximetry (%) 97 06/01/16 21:00 Constitutional: Yes: Calm Cardiovascular: Yes: S1, S2 Respiratory: Yes: CTA Bilaterally Gastrointestinal: Yes: Normal Bowel Sounds, Soft, Hernia Edema: LLE: Trace, RLE: Trace Labs: CBC, BMP 05/31/16 02:02 INR, PTT INR 2.80 (0.82-1.09) H 06/01/16 07:15 Problem List - Problems (1) Abdominal wall hernia Code(s): K43.9 - VENTRAL HERNIA WITHOUT OBSTRUCTION OR GANGRENE (2) Afib Code(s): I48.91 - UNSPECIFIED ATRIAL FIBRILLATION Qualifiers: Atrial fibrillation type: paroxysmal Qualified Code(s): I48.0 - Paroxysmal atrial fibrillation (3) Hiatal hernia Code(s): K44.9 - DIAPHRAGMATIC HERNIA WITHOUT OBSTRUCTION OR GANGRENE (4) Hyperlipidemia Code(s): E78.5 - HYPERLIPIDEMIA, UNSPECIFIED Qualifiers: Hyperlipidemia type: pure hypercholesterolemia Qualified Code(s): E78.0 - Pure hypercholesterolemia (5) Hypertension Code(s): I10 - ESSENTIAL (PRIMARY) HYPERTENSION Qualifiers: Hypertension type: essential hypertension Qualified Code(s): I10 - Essential (primary) hypertension Assessment/Plan (1) Abdominal wall hernia Assessment/Plan: SURGICAL CONSULT NOTED AND DISCUSSED FOR OR ONCE INR IN RANGE - [facility] Code(s): K43.9 - VENTRAL HERNIA WITHOUT OBSTRUCTION OR GANGRENE (2) Afib Assessment/Plan: BRIDGE WITH HEPARIN WHEN INR LESS THAN 2 [facility] CONSULTED Code(s): I48.91 - UNSPECIFIED ATRIAL FIBRILLATION (3) Hiatal hernia Code(s): K44.9 - DIAPHRAGMATIC HERNIA WITHOUT OBSTRUCTION OR GANGRENE (4) Hyperlipidemia Code(s): E78.5 - HYPERLIPIDEMIA, UNSPECIFIED Qualifiers: Hyperlipidemia type: pure hypercholesterolemia Qualified Code(s): E78.0 - Pure hypercholesterolemia (5) Hypertension Assessment/Plan: CONTROLLED Code(s): I10 - ESSENTIAL (PRIMARY) HYPERTENSION Qualifiers: Hypertension type: essential hypertension Qualified Code(s): I10 - Essential (primary) hypertension [facility]
[2016-06-02 08:30] LABS: BASOPHIL 1.1 % (0-2.0); EOSINOPHIL 2.4 % (0-4.5); MCHC 33.7 g/dl (32.0-35.9); MEAN CELL VOLUME 91.9 fl (80-96); MEAN PLT VOLUME 8.5 fl (7.5-11.1); PLATELET COUNT 136 K/MM3 (134-434)
[2016-06-02 08:43] LABS: INR 2.17 (0.82-1.09); PROTHROMBIN TIME (PATIENT) 24.2 SEC (9.98-11.88)
[2016-06-02 09:01] LABS: ALBUMIN 3.6 g/dl (3.4-5.0); BILIRUBIN,TOTAL 0.8 mg/dL (0.2-1.0); CALCIUM 9.2 mg/dL (8.5-10.1); CREATININE 1.3 mg/dL (0.7-1.3)
[2016-06-02] MEDS: PANTOPRAZOLE 40 MG TABLET (FP) PO SCH (09:41)
--- NOTE | 2016-06-02 11:05 | PN ---
Progress Note, Physician History of Present Illness: No abd pain, nausea, emesis, tolerating diet. - Current Medication List Current Medications: Active Medications Acetaminophen (Tylenol -) 650 mg PO Q6H PRN PRN Reason: FEVER OR PAIN Morphine Sulfate (Morphine Injection -) 4 mg IVPUSH Q3H PRN PRN Reason: PAIN Nebivolol (Bystolic -) 5 mg PO [facility] Last Admin: 06/01/16 21:28 Dose: 5 mg Ondansetron HCl (Zofran Odt -) 8 mg SL Q6H PRN PRN Reason: NAUSEA AND/OR VOMITING Pantoprazole Sodium (Protonix -) 40 mg PO DAILY [facility] Last Admin: 06/02/16 09:41 Dose: 40 mg Rosuvastatin Calcium (Crestor -) 10 mg PO [facility] Last Admin: 06/01/16 21:27 Dose: 10 mg - Objective Vital Signs: Vital Signs Temperature 97.8 F 06/02/16 06:00 Pulse Rate 49 L 06/02/16 06:00 Respiratory Rate 18 06/02/16 06:00 Blood Pressure 105/64 06/02/16 06:00 O2 Sat by Pulse Oximetry (%) 97 06/01/16 21:00 Constitutional: Yes: No Distress, Calm Neck: Yes: Supple Cardiovascular: Yes: Regular Rate and Rhythm Respiratory: Yes: Regular, CTA Bilaterally Gastrointestinal: Yes: Normal Bowel Sounds, Soft Edema: No Labs: CBC, BMP 06/02/16 07:55 06/02/16 07:55 INR, PTT INR 2.17 (0.82-1.09) H 06/02/16 07:55 Problem List - Problems (1) Abdominal wall hernia Code(s): K43.9 - VENTRAL HERNIA WITHOUT OBSTRUCTION OR GANGRENE (2) Afib Code(s): I48.91 - UNSPECIFIED ATRIAL FIBRILLATION Qualifiers: Atrial fibrillation type: paroxysmal Qualified Code(s): I48.0 - Paroxysmal atrial fibrillation (3) Hyperlipidemia Code(s): E78.5 - HYPERLIPIDEMIA, UNSPECIFIED Qualifiers: Hyperlipidemia type: pure hypercholesterolemia Qualified Code(s): E78.0 - Pure hypercholesterolemia (4) Hypertension Code(s): I10 - ESSENTIAL (PRIMARY) HYPERTENSION Qualifiers: Hypertension type: essential hypertension Qualified Code(s): I10 - Essential (primary) hypertension (5) Pre-operative cardiovascular examination Code(s): Z01.810 - ENCOUNTER FOR PREPROCEDURAL CARDIOVASCULAR EXAMINATION Assessment/Plan 1. Pre-op ventral hernia repair 2. Paroxysmal atrial fibrillation with therapeutic INR 3. HTN 4. Hypercholesterolemia 5. GERD PLAN: 1. Continue to hold Coumadin and let it drift down before proceeding to surgery. Would not give Vitamin K unless patient is bleeding or surgery is emergent. 2. Continue Bystolic 5 qhd 3. Continue Crestor 10 qhs 4. Planned for robotic incisional hernia repair with mesh on 06/03/16 pending acceptable INR.
--- NOTE | 2016-06-02 13:11 | PN ---
Progress Note (short form) - Note Progress Note: Pt had BM and is tolerating a regular diet. Vital Signs Period Temp Pulse Resp BP Sys/Dickerson Pulse Ox Last 24 Hr 97.7 F-98.0 F 49-57 17-20 105-129/64-76 97-97 PE: GEN:A&0x3, NAD ABD: soft, non-distended, non-tender INR, PTT INR 2.17 (0.82-1.09) H 06/02/16 07:55 Problem List - Problems (1) Abdominal wall hernia Assessment/Plan: plan for robotic repair tomorrow, npo after midnight. Pt cleared for surgery pending INR results, Today the value is 2.17. S/w Dr. Olmstead and may proceed with the surgery if INR <2. Code(s): K43.9 - VENTRAL HERNIA WITHOUT OBSTRUCTION OR GANGRENE
[2016-06-02] MEDS: SENNOSIDES 8.6MG TABLET (FP) PO SCH ×2 (14:20→21:36)
[2016-06-02] MEDS: NEBIVOLOL 5 MG TABLET (FP) PO SCH (21:36)
[2016-06-02] MEDS: ROSUVASTATIN CA 10 MG TABLET (FP) PO SCH (21:36)
[2016-06-02] MEDS ORDERED: DOCUSATE SODIUM 100 MG CAPSULE (FP) PO SCH (22:00)
--- NOTE | 2016-06-02 22:09 | CONSULT ---
Consult - text type - Consultation Consultation Note: A 76-year-old male with history of atrial fibrillation, on Coumadin, who initially presented with abdominal pain. He was found to have abdominal hernia which was reduced by Dr. Hensley. He was admitted to [facility] for surgical evaluation. His workup including CT abd/pel confirmed abdominal hernia with incarcerated small bowel. He was also noticed to have hiatal hernia. He reports that he has been doing relatively well except mild GERD in which he is taking PPI for symptomatic relief. He denies f/c, n/v, constipation, bowel habit changes, SOB, GERBER, cough, sputum production, wheezing, weight loss, and chest pain. - Past Medical History Cardio/Vascular: Yes: AFIB, HTN, Hyperlipdemia Gastrointestinal: Yes: GERD, Other (hernia) - Past Surgical History Past Surgical History: Yes: Prostatectomy (robotic-assisted prostatectomy at [facility] (2013)) - Smoking History Smoking history: Never smoked - Social History Usual Living Arrangement: With Spouse Home Medications - Allergies Allergies/Adverse Reactions: Allergies Allergy/AdvReac Type Severity Reaction Status Date / Time No Known Allergies Allergy Verified 05/30/16 15:10 - Home Medications Home Medications: Ambulatory Orders Rabeprazole Sodium [Aciphex (Nf) 20 MG] 20 mg NR DAILY #0 tablet.ec 06/02/11 Rosuvastatin [Crestor -] 10 mg PO HS #0 tablet 06/02/11 Warfarin Na [Coumadin] 4 mg PO DAILY #0 tablet 06/02/11 Cholecalciferol (Vitamin D3) [Vitamin D3] 2,000 unit PO DAILY 05/30/16 Cyanocobalamin [Vitamin B12 -] 1,000 mcg PO DAILY 05/30/16 Ferrous Sulfate 325 mg PO DAILY 05/30/16 Metoprolol Succinate [Toprol Xl -] 25 mg PO DAILY 05/30/16 Nebivolol [Bystolic -] 5 mg PO DAILY 05/30/16 Current Medications Acetaminophen (Tylenol -) 650 mg PO Q6H PRN PRN Reason: FEVER OR PAIN Docusate Sodium (Colace -) 300 mg PO [facility] Last Admin: 06/02/16 21:36 Dose: Not Given Morphine Sulfate (Morphine Injection -) 4 mg IVPUSH Q3H PRN PRN Reason: PAIN Nebivolol (Bystolic -) 5 mg PO [facility] Last Admin: 06/02/16 21:36 Dose: 5 mg Ondansetron HCl (Zofran Odt -) 8 mg SL Q6H PRN PRN Reason: NAUSEA AND/OR VOMITING Pantoprazole Sodium (Protonix -) 40 mg PO DAILY [facility] Last Admin: 06/02/16 09:41 Dose: 40 mg Rosuvastatin Calcium (Crestor -) 10 mg PO HS [facility] Last Admin: 06/02/16 21:36 Dose: 10 mg Senna (Senna -) 1 tab PO BID [facility] Last Admin: 06/02/16 21:36 Dose: Not Given Family Disease History - Family Disease History Family History: Unremarkable Physical Exam Vital Signs: Vital Signs Temperature 98.0 F 05/31/16 14:00 Pulse Rate 67 05/31/16 14:00 Respiratory Rate 17 05/31/16 14:00 Blood Pressure 113/74 05/31/16 09:00 O2 Sat by Pulse Oximetry (%) 97 05/30/16 21:44 Cor: RSR, No murmurs, No gallops Lungs: Clear to P&A Abd: Soft, Normal bowel sounds, ventral hernia Ext:No significant edema Skin: No rashes, Integument intact A/p A 76-year-old male with history of HTN, DM,atrial fibrillation, on Coumadin, GERD and hiatal hernia, who presented to [facility] with abdominal hernia . Being evaluated for vntral hernia repair coumadin on hold for surgery INR 2.17 today discussd with cardiology -- since surgery is electiv will aait INR to drift down and hold off on Vit. K/FFP. May favio bridging --to be decided by cardiology timing of surgery to be decided based on INR per surgical team
[2016-06-03 07:39] LABS: BASOPHIL 0.9 % (0-2.0); EOSINOPHIL 2.9 % (0-4.5); MCH 30.9 pg (25.7-33.7); MCHC 33.8 g/dl (32.0-35.9); MEAN CELL VOLUME 91.4 fl (80-96); MEAN PLT VOLUME 8.4 fl (7.5-11.1); NEUTROPHILS 57.1 % (42.8-82.8); PLATELET COUNT 138 K/MM3 (134-434); WHITE BLOOD COUNT 5.3 K/mm3 (4.0-10.0)
--- NOTE | 2016-06-03 07:58 | PN ---
Progress Note, Physician Chief Complaint: CALM - Current Medication List Current Medications: Active Medications Acetaminophen (Tylenol -) 650 mg PO Q6H PRN PRN Reason: FEVER OR PAIN Docusate Sodium (Colace -) 300 mg PO [facility] Last Admin: 06/02/16 21:36 Dose: Not Given Morphine Sulfate (Morphine Injection -) 4 mg IVPUSH Q3H PRN PRN Reason: PAIN Nebivolol (Bystolic -) 5 mg PO [facility] Last Admin: 06/02/16 21:36 Dose: 5 mg Ondansetron HCl (Zofran Odt -) 8 mg SL Q6H PRN PRN Reason: NAUSEA AND/OR VOMITING Pantoprazole Sodium (Protonix -) 40 mg PO DAILY [facility] Last Admin: 06/02/16 09:41 Dose: 40 mg Rosuvastatin Calcium (Crestor -) 10 mg PO [facility] Last Admin: 06/02/16 21:36 Dose: 10 mg Senna (Senna -) 1 tab PO BID [facility] Last Admin: 06/02/16 21:36 Dose: Not Given - Objective Vital Signs: Vital Signs Temperature 97.8 F 06/03/16 06:00 Pulse Rate 53 L 06/03/16 06:00 Respiratory Rate 18 06/03/16 06:00 Blood Pressure 136/75 06/03/16 06:00 O2 Sat by Pulse Oximetry (%) 97 06/02/16 20:59 Cardiovascular: Yes: Regular Rate and Rhythm, S1, S2 Respiratory: Yes: CTA Bilaterally Gastrointestinal: Yes: Normal Bowel Sounds, Soft, Hernia Edema: LLE: Trace, RLE: Trace Labs: INR, PTT INR 2.17 (0.82-1.09) H 06/02/16 07:55 Problem List - Problems (1) Abdominal wall hernia Code(s): K43.9 - VENTRAL HERNIA WITHOUT OBSTRUCTION OR GANGRENE (2) Afib Code(s): I48.91 - UNSPECIFIED ATRIAL FIBRILLATION Qualifiers: Atrial fibrillation type: paroxysmal Qualified Code(s): I48.0 - Paroxysmal atrial fibrillation (3) Hiatal hernia Code(s): K44.9 - DIAPHRAGMATIC HERNIA WITHOUT OBSTRUCTION OR GANGRENE (4) Hyperlipidemia Code(s): E78.5 - HYPERLIPIDEMIA, UNSPECIFIED Qualifiers: Hyperlipidemia type: pure hypercholesterolemia Qualified Code(s): E78.0 - Pure hypercholesterolemia (5) Hypertension Code(s): I10 - ESSENTIAL (PRIMARY) HYPERTENSION Qualifiers: Hypertension type: essential hypertension Qualified Code(s): I10 - Essential (primary) hypertension Assessment/Plan (1) Abdominal wall hernia Assessment/Plan: SURGICAL CONSULT NOTED AND DISCUSSED FOR OR TODAY INR 1.6 (NEED <2) CARDIO ON CASE VIT K NOT ENCOURAGED -> HEME CONSULTED Code(s): K43.9 - VENTRAL HERNIA WITHOUT OBSTRUCTION OR GANGRENE (2) Afib Assessment/Plan: BRIDGE WITH HEPARIN WHEN INR LESS THAN 2 HEME CONSULTED Code(s): I48.91 - UNSPECIFIED ATRIAL FIBRILLATION (3) Hiatal hernia Code(s): K44.9 - DIAPHRAGMATIC HERNIA WITHOUT OBSTRUCTION OR GANGRENE (4) Hyperlipidemia Code(s): E78.5 - HYPERLIPIDEMIA, UNSPECIFIED Qualifiers: Hyperlipidemia type: pure hypercholesterolemia Qualified Code(s): E78.0 - Pure hypercholesterolemia (5) Hypertension Assessment/Plan: CONTROLLED Code(s): I10 - ESSENTIAL (PRIMARY) HYPERTENSION Qualifiers: Hypertension type: essential hypertension Qualified Code(s): I10 - Essential (primary) hypertension PASTOR MARTINEZ
[2016-06-03 08:13] LABS: INR 1.56 (0.82-1.09); PROTHROMBIN TIME (PATIENT) 17.3 SEC (9.98-11.88)
[2016-06-03 08:17] LABS: ALBUMIN 3.7 g/dl (3.4-5.0); CALCIUM 9.1 mg/dL (8.5-10.1)
[2016-06-03 08:20] LABS: BILIRUBIN,TOTAL 0.6 mg/dL (0.2-1.0); CREATININE 1.3 mg/dL (0.7-1.3); TOT PROT 7.1 g/dl (6.4-8.2)
[2016-06-03] MEDS ORDERED: ONDANSETRON 4 MG/2 ML VIAL IVPUSH PRN (09:11)
[2016-06-03] MEDS ORDERED: DESFLURANE GAS 240 ML BOTTLE IH ONE (09:33)
[2016-06-03] MEDS: SENNOSIDES 8.6MG TABLET (FP) PO SCH ×2 (09:37→21:57)
[2016-06-03] MEDS: PANTOPRAZOLE 40 MG TABLET (FP) PO SCH (09:37)
[2016-06-03] MEDS ORDERED: PROPOFOL 20 ML ONE ×3 (09:44→11:01)
[2016-06-03 09:46] LABS: ACTIVATED PTT 42.5 SECONDS (26.9-34.4)
[2016-06-03] MEDS ORDERED: DEXAMETHASONE SOD PHOSPHATE 4 MG/1 ML VIAL ONE (09:48)
[2016-06-03] MEDS ORDERED: PHENYLEPHRINE HCL 10 MG/1 ML SINGLE DOSE VIAL ONE (09:52)
[2016-06-03] MEDS ORDERED: ROCURONIUM BROMIDE 50 MG/5 ML VIAL ONE ×2 (10:37→11:28)
[2016-06-03] MEDS ORDERED: SUCCINYLCHOLINE CHLORIDE 200 MG/10 ML VIAL ONE (10:39)
[2016-06-03] MEDS ORDERED: ceFAZolin SODIUM 1 GM VIAL IVPB ONE (10:40)
[2016-06-03] MEDS ORDERED: HYDROmorphone HCL/PF 1 MG/ML VIAL (FOR PYXIS CHARGING ONLY) ONE (10:58)
[2016-06-03] MEDS ORDERED: BUPIVACAINE HCL/PF 0.5% (5MG/ML) 10 ML VIAL IJ ONE ×2 (11:00)
[2016-06-03] MEDS ORDERED: ceFAZolin SODIUM 1 GM VIAL ONE ×2 (11:31)
[2016-06-03] MEDS ORDERED: ACETAMINOPHEN INJECTION 100 ML IVPB ONE (12:04)
[2016-06-03] MEDS ORDERED: GLYCOPYRROLATE 0.2 MG/1 ML VIAL ONE ×2 (12:11)
[2016-06-03] MEDS ORDERED: NEOSTIGMINE METHYLSULFATE 0.5 MG/ML - 10 ML MDV ONE (12:13)
[2016-06-03] MEDS ORDERED: BUPIVACAINE HCL/PF 0.5% (5MG/ML) 10 ML VIAL ONE (13:23)
--- NOTE | 2016-06-03 14:03 | OP ---
<Andrew Cid - Last Filed: 06/03/16 14:01> Operative Note - Note: Operative Date: 06/03/16 Pre-Operative Diagnosis: Incarcerated incisional hernia (chronic) Operation: Robotic repair incarcerated incisional hernia with mesh Post-Operative Diagnosis: Same as Pre-op Surgeon: Mayo Olmstead Vp Integrity: Andrew iCd Anesthesiologist/CLINICAL BUSINESS MANAGER: Tin Sahu Anesthesia: General Specimens Removed: None. Estimated Blood Loss (mls): 5 Fluid Volume Replaced (mls): 1,000 Operative Report Dictated: Yes <Mayo Olmstead - Last Filed: 06/03/16 14:13> Operative Note - Note: Findings: 6 cm supraumbilical incisional hernia defect
--- NOTE | 2016-06-03 14:05 | SURG ---
Surgery Vp Construction Note Vp Construction: Andrew Cid PA-C Date of Service: 06/03/16 Diagnosis: Incarcerated incisonal hernia (chronic) Procedure: Robotic repair chronic incarcerated incisional hernia with mesh I was present for the entirety of the operative procedure. For further detail, please refer to operative report. Visit type - Case Type Case Type: ED Admission - Emergency Emergency Visit: Yes ED Registration Date: 05/30/16 Care time: The patient presented to the Emergency Department on the above date and was hospitalized for further evaluation of their emergent condition. - New patient This patient is new to me today: Yes Date on this admission: 06/03/16
--- NOTE | 2016-06-03 15:28 | PN ---
Progress Note, Physician History of Present Illness: Seen in PACU post-herniorrhaphy. Mild incisional abd discomfort, remains in SR. - Current Medication List Current Medications: Active Medications Acetaminophen (Tylenol -) 650 mg PO Q6H PRN PRN Reason: FEVER OR PAIN Cholecalciferol (Vitamin D3 -) 2,000 unit PO DAILY [facility] Cyanocobalamin (Vitamin B12 -) 1,000 mcg PO DAILY [facility] Docusate Sodium (Colace -) 300 mg PO HS [facility] Last Admin: 06/02/16 21:36 Dose: Not Given Fentanyl (Sublimaze Injection -) 25 mcg IVPUSH [id number] PRN PRN Reason: PAIN Stop: 06/06/16 09:12 Ferrous Sulfate (Feosol -) 325 mg PO DAILY [facility] Metoprolol Succinate (Toprol Xl -) 25 mg PO DAILY [facility] Morphine Sulfate (Morphine Injection -) 4 mg IVPUSH Q3H PRN PRN Reason: PAIN Nebivolol (Bystolic -) 5 mg PO DAILY [facility] Ondansetron HCl (Zofran Odt -) 8 mg SL Q6H PRN PRN Reason: NAUSEA AND/OR VOMITING Pantoprazole Sodium (Protonix -) 40 mg PO DAILY [facility] Last Admin: 06/03/16 09:37 Dose: Not Given Rosuvastatin Calcium (Crestor -) 10 mg PO HS [facility] Senna (Senna -) 1 tab PO BID [facility] Last Admin: 06/03/16 09:37 Dose: Not Given Warfarin Sodium (Coumadin -) 4 mg PO DAILY@1800 [facility] - Objective Vital Signs: Vital Signs Temperature 98.2 F 06/03/16 14:00 Pulse Rate 72 06/03/16 15:00 Respiratory Rate 16 06/03/16 15:00 Blood Pressure 144/70 06/03/16 15:00 O2 Sat by Pulse Oximetry (%) 98 06/03/16 15:00 Constitutional: Yes: No Distress, Calm Neck: Yes: Supple Cardiovascular: Yes: Regular Rate and Rhythm Respiratory: Yes: Regular, Diminished, On Nasal O2 Gastrointestinal: Yes: Soft, Hypoactive Bowel Sounds, Tenderness Edema: No Labs: CBC, BMP 06/03/16 06:00 06/03/16 06:00 INR, PTT INR 1.56 (0.82-1.09) H 06/03/16 06:00 Fibrinogen 320.0 mg/dL (238-498) 06/03/16 06:00 Problem List - Problems (1) Abdominal wall hernia Code(s): K43.9 - VENTRAL HERNIA WITHOUT OBSTRUCTION OR GANGRENE (2) Afib Code(s): I48.91 - UNSPECIFIED ATRIAL FIBRILLATION Qualifiers: Atrial fibrillation type: paroxysmal Qualified Code(s): I48.0 - Paroxysmal atrial fibrillation (3) Hyperlipidemia Code(s): E78.5 - HYPERLIPIDEMIA, UNSPECIFIED Qualifiers: Hyperlipidemia type: pure hypercholesterolemia Qualified Code(s): E78.0 - Pure hypercholesterolemia (4) Hypertension Code(s): I10 - ESSENTIAL (PRIMARY) HYPERTENSION Qualifiers: Hypertension type: essential hypertension Qualified Code(s): I10 - Essential (primary) hypertension Assessment/Plan 1. Post-op ventral hernia repair stable CV thomas 2. Paroxysmal atrial fibrillation with subtherapeutic INR 3. HTN 4. Hypercholesterolemia 5. GERD PLAN: 1. Discussed with Dr. Olmstead, to resume coumadin per INR 2 days post-op to allow for adequate post-op hemostasis 2. Continue Bystolic 5 qhd 3. Continue Crestor 10 qhs 4. D/c planning per surgery
--- NOTE | 2016-06-03 16:41 | PN ---
Progress Note (short form) - Note Progress Note: PAtient seen and examined post operatively on the floor CBC stable post op. 5ml blood loss per op. note Last Vital Signs Temp Pulse Resp BP Pulse Ox 98.2 F 76 16 154/80 98 06/03/16 14:00 06/03/16 15:30 06/03/16 15:30 06/03/16 15:30 06/03/16 15:00 HEENT: RIGO, EOM Intact Oropharynx: No thrush, No mucositis Cor: RSR, No murmurs, No gallops Lungs: Clear to P&A Abd: Soft, incisions over right side of abdomen Ext:No significant edema Abnormal Lab Results 06/03/16 06/03/16 06/03/16 06:00 06:00 06:00 RDW 16.0 H INR 1.56 H PTT (Actin FS) Random Glucose 109 H 06/03/16 06:00 RDW INR PTT (Actin FS) 42.5 H Random Glucose Current Medications Acetaminophen (Tylenol -) 650 mg PO Q6H PRN PRN Reason: FEVER OR PAIN Cholecalciferol (Vitamin D3 -) 2,000 unit PO DAILY [facility] Cyanocobalamin (Vitamin B12 -) 1,000 mcg PO DAILY [facility] Docusate Sodium (Colace -) 300 mg PO HS [facility] Last Admin: 06/02/16 21:36 Dose: Not Given Fentanyl (Sublimaze Injection -) 25 mcg IVPUSH [id number] PRN PRN Reason: PAIN Stop: 06/06/16 09:12 Ferrous Sulfate (Feosol -) 325 mg PO DAILY [facility] Metoprolol Succinate (Toprol Xl -) 25 mg PO DAILY [facility] Morphine Sulfate (Morphine Injection -) 4 mg IVPUSH Q3H PRN PRN Reason: PAIN Nebivolol (Bystolic -) 5 mg PO DAILY [facility] Ondansetron HCl (Zofran Odt -) 8 mg SL Q6H PRN PRN Reason: NAUSEA AND/OR VOMITING Pantoprazole Sodium (Protonix -) 40 mg PO DAILY [facility] Last Admin: 06/03/16 09:37 Dose: Not Given Rosuvastatin Calcium (Crestor -) 10 mg PO HS [facility] Senna (Senna -) 1 tab PO BID [facility] Last Admin: 06/03/16 09:37 Dose: Not Given Warfarin Sodium (Coumadin -) 4 mg PO DAILY@1800 [facility] A/P A 76-year-old male with history of HTN, DM,atrial fibrillation, on Coumadin, GERD and hiatal hernia, who presented to [facility] with abdominal hernia . Underwent hernia repair today moniitor CBC resume coumadin per cardiology/surgery teams
[2016-06-03] MEDS ORDERED: ONDANSETRON *ODT* 4 MG TABLET SL PRN (18:33)
[2016-06-03] MEDS ORDERED: ACETAMINOPHEN 325 MG TABLET (FP) PO PRN (18:33)
[2016-06-03 18:42] LABS: MCH 30.7 pg (25.7-33.7); MCHC 33.4 g/dl (32.0-35.9); MEAN CELL VOLUME 91.9 fl (80-96); MEAN PLT VOLUME 8.7 fl (7.5-11.1); PLATELET COUNT 164 K/MM3 (134-434); WHITE BLOOD COUNT 9.6 K/mm3 (4.0-10.0)
[2016-06-03 19:13] LABS: INR 1.52 (0.82-1.09); PROTHROMBIN TIME (PATIENT) 16.9 SEC (9.98-11.88)
[2016-06-03 19:16] LABS: ACTIVATED PTT 34.8 SECONDS (26.9-34.4)
[2016-06-03 19:23] LABS: PLATELET ESTIMATE ADEQUATE (NORMAL)
[2016-06-03] MEDS: METOPROLOL SUCCINATE 25 MG TAB.SR.24H (FP) PO SCH (21:30)
[2016-06-03] MEDS: DOCUSATE SODIUM 100 MG CAPSULE (FP) PO SCH (21:56)
[2016-06-03] MEDS ORDERED: ROSUVASTATIN CA 40 MG TABLET PO SCH (22:00)
[2016-06-03] MEDS ORDERED: ROSUVASTATIN CA 10 MG TABLET (FP) PO SCH (22:00)
[2016-06-03] MEDS: ROSUVASTATIN CA 10 MG TABLET (FP) PO SCH (23:25)
[2016-06-03] MEDS: morphine CARPU-JECT 4 MG/1 ML DISP.SYRIN IVPUSH PRN (23:25)
[2016-06-04] MEDS: morphine CARPU-JECT 4 MG/1 ML DISP.SYRIN IVPUSH PRN (05:46)
[2016-06-04 08:28] LABS: INR 1.66 (0.82-1.09); PROTHROMBIN TIME (PATIENT) 18.4 SEC (9.98-11.88)
[2016-06-04 08:54] LABS: MCH 30.8 pg (25.7-33.7); MEAN CELL VOLUME 90.7 fl (80-96); MEAN PLT VOLUME 8.6 fl (7.5-11.1); PLATELET COUNT 149 K/MM3 (134-434); RDW 16.5 % (11.9-15.9); WHITE BLOOD COUNT 10.1 K/mm3 (4.0-10.0)
[2016-06-04 09:01] LABS: BASOPHIL 0.6 % (0-2.0); EOSINOPHIL 0.7 % (0-4.5); MCH 30.6 pg (25.7-33.7); MCHC 33.5 g/dl (32.0-35.9); MEAN CELL VOLUME 91.3 fl (80-96); MEAN PLT VOLUME 8.8 fl (7.5-11.1); NEUTROPHILS 76.1 % (42.8-82.8); PLATELET COUNT 147 K/MM3 (134-434); WHITE BLOOD COUNT 10.2 K/mm3 (4.0-10.0)
--- NOTE | 2016-06-04 09:13 | PN ---
Progress Note (short form) - Note Progress Note: POD #1 s/p robotic repair of incarcerated incisional hernia with mesh No acute events since surgery per RN notes. Alert. Sitting in bed resting comfortably. C/o mild incisional tenderness. Pain managed well via prn meds. States he has been oob and ambulating unassisted. Voiding spontaneously. Tolerating PO diet. Denies n/v/f/c, CP or SOB. Last Vital Signs Temp Pulse Resp BP Pulse Ox 99 F 80 20 125/78 98 06/04/16 06:00 06/04/16 06:00 06/04/16 06:00 06/04/16 06:00 06/03/16 21:00 INR INR 1.66 (0.82-1.09) H 06/04/ 07:00 PE General: alert. nad. Pulm: cta b/l anteriorly Cor: rrr Abd: surgical ports x3 (left abd) are intact. no hematoma. LE: soft. nt b/l Problem List - Problems (1) Abdominal wall hernia Assessment/Plan: POD #1 s/p robotic repair of incarcerated incisional hernia with mesh Cont 2gmNa diet Cont to ambulate Pain management prn No further surgical intervention Can be dc'd home per medicine once INR therapeutic On behalf of Dr. Olmstead, thank you for the opportunity to participate in your patient's care Code(s): K43.9 - VENTRAL HERNIA WITHOUT OBSTRUCTION OR GANGRENE (2) Afib Assessment/Plan: Coumadin INR subtherapeutic f/u INR in AM Code(s): I48.91 - UNSPECIFIED ATRIAL FIBRILLATION Qualifiers: Atrial fibrillation type: paroxysmal Qualified Code(s): I48.0 - Paroxysmal atrial fibrillation
--- NOTE | 2016-06-04 09:15 | OP ---
DATE OF OPERATION: 06/03/2016 PROCEDURE: Robotically assisted incisional hernia repair with mesh. PREOPERATIVE DIAGNOSIS: Incarcerated incisional hernia. POSTOPERATIVE DIAGNOSIS: Incarcerated incisional hernia. SURGEON: Mayo Olmstead MD PATHOLOGY SUPERVISOR: TEE Harding ANESTHESIA: General endotracheal. FINDINGS ON PROCEDURE: This is a 76-year-old male with history of robotically assisted prostatectomy who developed a supraumbilical incisional hernia. Patient was admitted 5 days prior secondary to acute incarceration of the hernia containing a small intestine. Hernia was manually reduced in the PMDs office, and a CT scan done in the emergency department revealed a supraumbilical hernia containing loop of small bowel, but no small bowel obstruction. So, patient was admitted for observation and was advised repair of the hernia prior to discharge. Patient was optimized by holding the Coumadin for 5 days. Consent was obtained for the procedure after discussing the risks, benefits, and alternatives to the procedure. DESCRIPTION OF PROCEDURE: Patient was brought to the operating room and placed in supine position. General endotracheal anesthesia was administered. A roll was then placed in the patients left flank, and the table was hyperextended. The abdomen was prepped and draped in the usual sterile fashion using 0.5% Marcaine, local anesthesia was administered to both incision sites. The peritoneal cavity was entered using the Veress needle technique via an 8-mm left subcostal incision to the anterior axillary line. Pneumoperitoneum was established. The 30-degree 3D laparoscope was inserted, and the peritoneal cavity was carefully inspected to rule out inadvertent injury. A large incisional hernia defect, which was about 6 cm in diameter, was noted. At this time, hernia sac was empty. There were adhesions of the omentum to the posterior abdominal wall around the neck of the hernia sac. There was also a small 1-cm defect inferolateral to the large hernia defect. The two other 8-mm ports were inserted to the right flank, one at the level of the umbilicus, but 20 cm away from the hernia defect. Another 8-mm port was inserted at the left lower quadrant posterior to the anterior axillary line. The 3D laparoscope was inserted back at the middle port, and the target organ was set. The robotic arms were docked. EndoWrist Saeid connected to monopolar cautery was inserted at the left subcostal port, and the fenestrated bipolar forceps was inserted at the left lower quadrant port. The undersigned scrubbed out to commence the consult part of the procedure. Due to the dense fat in the peritoneum, it was decided upon to take down the peritoneal cavity to do the preperitoneal dissection. A 12-cm incision was made of the peritoneum about 5 cm away from the left lateral edge of the hernia defect using the EndoWrist Saeid. A pocket S1 was then carefully made towards the hernia defect and beyond to the right of the hernia defect about 5 cm away from the right lateral margin. The hernia sac was then carefully dissected, was then reduced by using the sharp dissection with the EndoWrist Saeid. The smaller hernia defect was also taken down. After an adequate space was created for the mesh, the large hernia defect was closed with continuous V-Loc No. 1 non-absorbable sutures incorporating a stitch bite on the smaller hernia defect. After this was completed, the 15 x 15 cm ProGrip mesh was trimmed down to about 14 x 12 cm to accommodate, to fit into the preperitoneal pocket. This was deployed, and the mesh was carefully deployed to the posterior abdominal wall covering at least 3-5 cm of overlap from the sutured hernia defect. The peritoneum was then closed using the excess hernia sac with continuous V- Loc 2-0 absorbable sutures. After the peritoneal closure was completed, the peritoneal cavity was carefully inspected and was noted to be free of inadvertent injury or active bleeding. The instruments were removed, and the robotic arms were undocked. The pneumoperitoneum was evacuated, and the ports were removed. The wounds were closed with subcuticular Biosyn 4-0 sutures reinforced with Dermabond. The patient was successfully extubated and transferred to the post-anesthesia care unit in satisfactory condition. ESTIMATED BLOOD LOSS: About 10 mL. WOUND CLASS: Clean. The patient received 2 g of Ancef prior to the start of the procedure. Charis [id number] MTDD
[2016-06-04 09:16] LABS: ALBUMIN 3.3 g/dl (3.4-5.0); BILIRUBIN,TOTAL 0.9 mg/dL (0.2-1.0); CALCIUM 8.7 mg/dL (8.5-10.1); CREATININE 1.4 mg/dL (0.7-1.3); TOT PROT 6.8 g/dl (6.4-8.2)
[2016-06-04] MEDS ORDERED: PT OWN MED DRAWER 7, Y5N ONE (09:43)
[2016-06-04] MEDS: PANTOPRAZOLE 40 MG TABLET (FP) PO SCH (09:44)
[2016-06-04] MEDS: CYANOCOBALAMIN 1,000 MCG TABLET (FP) PO SCH (09:44)
[2016-06-04] MEDS: SENNOSIDES 8.6MG TABLET (FP) PO SCH ×2 (09:44→21:24)
[2016-06-04] MEDS: NEBIVOLOL 5 MG TABLET (FP) PO SCH (09:44)
[2016-06-04] MEDS: CHOLECALCIFEROL (VITAMIN D3) 1,000 UNIT TABLET (FP) PO SCH (09:44)
[2016-06-04] MEDS: FERROUS SO4 325 MG TABLET (FP) PO SCH (09:44)
[2016-06-04] MEDS: METOPROLOL SUCCINATE 25 MG TAB.SR.24H (FP) PO SCH (09:45)
[2016-06-04] MEDS ORDERED: FERROUS SO4 325 MG TABLET (FP) PO SCH (10:00)
[2016-06-04] MEDS ORDERED: METOPROLOL SUCCINATE 25 MG TAB.SR.24H (FP) PO SCH ×2 (10:00)
[2016-06-04] MEDS ORDERED: CHOLECALCIFEROL (VITAMIN D3) 1,000 UNIT TABLET (FP) PO SCH (10:00)
[2016-06-04] MEDS ORDERED: CYANOCOBALAMIN 1,000 MCG TABLET (FP) PO SCH (10:00)
[2016-06-04] MEDS ORDERED: NEBIVOLOL 5 MG TABLET (FP) PO SCH (10:00)
[2016-06-04] MEDS ORDERED: RABEPRAZOLE SODIUM 20 MG NR SCH (10:00)
--- NOTE | 2016-06-04 12:47 | PN ---
Progress Note, Physician Chief Complaint: NO COMPLAINTS FEELS BETTER - Current Medication List Current Medications: Active Medications Acetaminophen (Tylenol -) 650 mg PO Q6H PRN PRN Reason: FEVER OR PAIN Cholecalciferol (Vitamin D3 -) 2,000 unit PO DAILY [facility] Last Admin: 06/04/16 09:44 Dose: 2,000 unit Cyanocobalamin (Vitamin B12 -) 1,000 mcg PO DAILY [facility] Last Admin: 06/04/16 09:44 Dose: 1,000 mcg Docusate Sodium (Colace -) 300 mg PO [facility] Last Admin: 06/03/16 21:56 Dose: 300 mg Fentanyl (Sublimaze Injection -) 25 mcg IVPUSH [id number] PRN PRN Reason: PAIN Stop: 06/06/16 09:12 Ferrous Sulfate (Feosol -) 325 mg PO DAILY [facility] Last Admin: 06/04/16 09:44 Dose: 325 mg Metoprolol Succinate (Toprol Xl -) 25 mg PO DAILY [facility] Last Admin: 06/04/16 09:45 Dose: 25 mg Morphine Sulfate (Morphine Injection -) 4 mg IVPUSH Q3H PRN PRN Reason: PAIN Last Admin: 06/04/16 05:46 Dose: 4 mg Nebivolol (Bystolic -) 5 mg PO DAILY [facility] Last Admin: 06/04/16 09:44 Dose: 5 mg Ondansetron HCl (Zofran Odt -) 8 mg SL Q6H PRN PRN Reason: NAUSEA AND/OR VOMITING Pantoprazole Sodium (Protonix -) 40 mg PO DAILY [facility] Last Admin: 06/04/16 09:44 Dose: 40 mg Rosuvastatin Calcium (Crestor -) 10 mg PO [facility] Last Admin: 06/03/16 23:25 Dose: 10 mg Senna (Senna -) 1 tab PO BID [facility] Last Admin: 06/04/16 09:44 Dose: 1 tab Warfarin Sodium (Coumadin -) 4 mg PO DAILY@1800 [facility] - Objective Vital Signs: Vital Signs Temperature 97.8 F 06/04/16 10:00 Pulse Rate 70 06/04/16 10:00 Respiratory Rate 18 06/04/16 10:00 Blood Pressure 129/82 06/04/16 10:00 O2 Sat by Pulse Oximetry (%) 95 06/04/16 09:00 Cardiovascular: Yes: S1, S2 Respiratory: Yes: CTA Bilaterally Gastrointestinal: Yes: Normal Bowel Sounds, Soft Edema: No Wound/Incision: Yes: Other (SURG WOUND C/D/I) Labs: CBC, BMP 06/04/16 07:00 06/04/16 07:00 INR, PTT INR 1.66 (0.82-1.09) H 06/04/16 07:00 Fibrinogen 320.0 mg/dL (238-498) 06/03/16 06:00 Problem List - Problems (1) Abdominal wall hernia Code(s): K43.9 - VENTRAL HERNIA WITHOUT OBSTRUCTION OR GANGRENE (2) Afib Code(s): I48.91 - UNSPECIFIED ATRIAL FIBRILLATION Qualifiers: Atrial fibrillation type: paroxysmal Qualified Code(s): I48.0 - Paroxysmal atrial fibrillation (3) Hiatal hernia Code(s): K44.9 - DIAPHRAGMATIC HERNIA WITHOUT OBSTRUCTION OR GANGRENE (4) Hyperlipidemia Code(s): E78.5 - HYPERLIPIDEMIA, UNSPECIFIED Qualifiers: Hyperlipidemia type: pure hypercholesterolemia Qualified Code(s): E78.0 - Pure hypercholesterolemia (5) Hypertension Code(s): I10 - ESSENTIAL (PRIMARY) HYPERTENSION Qualifiers: Hypertension type: essential hypertension Qualified Code(s): I10 - Essential (primary) hypertension Assessment/Plan (1) Abdominal wall hernia Assessment/Plan: SURGICAL CONSULT NOTED S/P OR REPAIR POD #1 CARDIO & HEME ON CASE - MONITOR Cr Code(s): K43.9 - VENTRAL HERNIA WITHOUT OBSTRUCTION OR GANGRENE (2) Afib Assessment/Plan: BRIDGE WITH HEPARIN WHEN INR LESS THAN 2 HEME CONSULT APPRECIATED APPRECIATE CARDIO CONSULT -> Discussed with Dr. Olmstead, to resume coumadin per INR 2 days post-op to allow for adequate post-op hemostasis Code(s): I48.91 - UNSPECIFIED ATRIAL FIBRILLATION (3) Hiatal hernia Code(s): K44.9 - DIAPHRAGMATIC HERNIA WITHOUT OBSTRUCTION OR GANGRENE (4) Hyperlipidemia Code(s): E78.5 - HYPERLIPIDEMIA, UNSPECIFIED Qualifiers: Hyperlipidemia type: pure hypercholesterolemia Qualified Code(s): E78.0 - Pure hypercholesterolemia (5) Hypertension Assessment/Plan: CONTROLLED Code(s): I10 - ESSENTIAL (PRIMARY) HYPERTENSION Qualifiers: Hypertension type: essential hypertension Qualified Code(s): I10 - Essential (primary) hypertension [facility]
--- NOTE | 2016-06-04 12:49 | PN ---
Progress Note (short form) - Note Progress Note: Patient s/p hernia repair, uncomplicated. Warfarin held for surgery. No complications. Warfarin to be resumed at discretion of surgery. Agree no indication for bridging (indication for AC is AF). Usual DVT prophylaxis post-surgery however is warranted - early mobilization, consideration for prophylactic dose heparin. Call with questions.
[2016-06-04] MEDS ORDERED: WARFARIN NA 2 MG TABLET (UD) PO SCH (18:00)
[2016-06-04] MEDS: ROSUVASTATIN CA 10 MG TABLET (FP) PO SCH (21:23)
[2016-06-04] MEDS: DOCUSATE SODIUM 100 MG CAPSULE (FP) PO SCH (21:23)
[2016-06-04] MEDS: HEPARIN NA (PORCINE) 5,000 UNITS/ML 1ML VIAL SQ SCH ×2 (21:24→21:28)
[2016-06-05 08:09] LABS: INR 1.38 (0.82-1.09); PROTHROMBIN TIME (PATIENT) 15.3 SEC (9.98-11.88)
[2016-06-05 08:27] LABS: ALBUMIN 3.4 g/dl (3.4-5.0); CALCIUM 8.6 mg/dL (8.5-10.1); CREATININE 1.4 mg/dL (0.7-1.3); TOT PROT 6.6 g/dl (6.4-8.2)
[2016-06-05 08:47] LABS: BASOPHIL 0.5 % (0-2.0); MCH 30.7 pg (25.7-33.7); MCHC 33.5 g/dl (32.0-35.9); MEAN CELL VOLUME 91.5 fl (80-96); MEAN PLT VOLUME 8.6 fl (7.5-11.1); NEUTROPHILS 68.8 % (42.8-82.8); PLATELET COUNT 139 K/MM3 (134-434); RDW 15.7 % (11.9-15.9); WHITE BLOOD COUNT 7.5 K/mm3 (4.0-10.0)
[2016-06-05] MEDS ORDERED: PT OWN MED DRAWER 7, Y5N ONE (09:24)
[2016-06-05] MEDS: SENNOSIDES 8.6MG TABLET (FP) PO SCH ×2 (09:25→21:27)
[2016-06-05] MEDS: FERROUS SO4 325 MG TABLET (FP) PO SCH (09:25)
[2016-06-05] MEDS: CHOLECALCIFEROL (VITAMIN D3) 1,000 UNIT TABLET (FP) PO SCH (09:25)
[2016-06-05] MEDS: PANTOPRAZOLE 40 MG TABLET (FP) PO SCH (09:25)
[2016-06-05] MEDS: NEBIVOLOL 5 MG TABLET (FP) PO SCH (09:25)
[2016-06-05] MEDS: METOPROLOL SUCCINATE 25 MG TAB.SR.24H (FP) PO SCH (09:25)
[2016-06-05] MEDS: HEPARIN NA (PORCINE) 5,000 UNITS/ML 1ML VIAL SQ SCH (09:25)
[2016-06-05] MEDS: CYANOCOBALAMIN 1,000 MCG TABLET (FP) PO SCH (09:26)
--- NOTE | 2016-06-05 09:49 | PN ---
Progress Note, Physician History of Present Illness: Tolerating diet, no abd pain. - Current Medication List Current Medications: Active Medications Acetaminophen (Tylenol -) 650 mg PO Q6H PRN PRN Reason: FEVER OR PAIN Cholecalciferol (Vitamin D3 -) 2,000 unit PO DAILY [facility] Last Admin: 06/05/16 09:25 Dose: 2,000 unit Cyanocobalamin (Vitamin B12 -) 1,000 mcg PO DAILY [facility] Last Admin: 06/05/16 09:26 Dose: 1,000 mcg Docusate Sodium (Colace -) 300 mg PO HS [facility] Last Admin: 06/04/16 21:23 Dose: 300 mg Fentanyl (Sublimaze Injection -) 25 mcg IVPUSH [id number] PRN PRN Reason: PAIN Stop: 06/06/16 09:12 Ferrous Sulfate (Feosol -) 325 mg PO DAILY [facility] Last Admin: 06/05/16 09:25 Dose: 325 mg Heparin Sodium (Porcine) (Heparin -) 5,000 unit SQ BID [facility] Last Admin: 06/05/16 09:25 Dose: Not Given Metoprolol Succinate (Toprol Xl -) 25 mg PO DAILY [facility] Last Admin: 06/05/16 09:25 Dose: 25 mg Morphine Sulfate (Morphine Injection -) 4 mg IVPUSH Q3H PRN PRN Reason: PAIN Last Admin: 06/04/16 05:46 Dose: 4 mg Nebivolol (Bystolic -) 5 mg PO DAILY [facility] Last Admin: 06/05/16 09:25 Dose: 5 mg Ondansetron HCl (Zofran Odt -) 8 mg SL Q6H PRN PRN Reason: NAUSEA AND/OR VOMITING Pantoprazole Sodium (Protonix -) 40 mg PO DAILY [facility] Last Admin: 06/05/16 09:25 Dose: 40 mg Rosuvastatin Calcium (Crestor -) 10 mg PO HS [facility] Last Admin: 06/04/16 21:23 Dose: 10 mg Senna (Senna -) 1 tab PO BID [facility] Last Admin: 06/05/16 09:25 Dose: 1 tab Warfarin Sodium (Coumadin -) 4 mg PO DAILY@1800 [facility] - Objective Vital Signs: Vital Signs Temperature 98 F 06/05/16 05:50 Pulse Rate 70 06/05/16 05:50 Respiratory Rate 20 06/05/16 05:50 Blood Pressure 130/82 06/05/16 05:50 O2 Sat by Pulse Oximetry (%) 96 06/04/16 21:00 Constitutional: Yes: No Distress, Calm Neck: Yes: Supple Cardiovascular: Yes: Regular Rate and Rhythm Respiratory: Yes: Regular, CTA Bilaterally Gastrointestinal: Yes: Normal Bowel Sounds, Soft, Abdomen, Obese Edema: No Labs: CBC, BMP 06/05/16 06:20 06/05/16 06:20 INR, PTT INR 1.38 (0.82-1.09) H 06/05/16 06:20 Fibrinogen 320.0 mg/dL (238-498) 06/03/16 06:00 Problem List - Problems (1) Abdominal wall hernia Code(s): K43.9 - VENTRAL HERNIA WITHOUT OBSTRUCTION OR GANGRENE (2) Afib Code(s): I48.91 - UNSPECIFIED ATRIAL FIBRILLATION Qualifiers: Atrial fibrillation type: paroxysmal Qualified Code(s): I48.0 - Paroxysmal atrial fibrillation (3) Hyperlipidemia Code(s): E78.5 - HYPERLIPIDEMIA, UNSPECIFIED Qualifiers: Hyperlipidemia type: pure hypercholesterolemia Qualified Code(s): E78.0 - Pure hypercholesterolemia (4) Hypertension Code(s): I10 - ESSENTIAL (PRIMARY) HYPERTENSION Qualifiers: Hypertension type: essential hypertension Qualified Code(s): I10 - Essential (primary) hypertension (5) CKD (chronic kidney disease) Code(s): N18.9 - CHRONIC KIDNEY DISEASE, UNSPECIFIED Qualifiers: Chronic kidney disease stage: stage 2 (mild) Qualified Code(s): N18.2 - Chronic kidney disease, stage 2 (mild) Assessment/Plan 1. Post-op ventral hernia repair stable CV thomas 2. Paroxysmal atrial fibrillation with subtherapeutic INR 3. HTN 4. Hypercholesterolemia 5. GERD 6. CKD PLAN: 1. Coumadin per INR started post-op 2. Continue Toprol XL 25 qd, d/c Bystolic 5 qd 3. Continue Crestor 10 qhs 4. D/c planning per surgery with f/u in office.
--- NOTE | 2016-06-05 09:55 | PN ---
Progress Note, Physician Chief Complaint: PASSING GAS TOLERATING PO - Current Medication List Current Medications: Active Medications Acetaminophen (Tylenol -) 650 mg PO Q6H PRN PRN Reason: FEVER OR PAIN Cholecalciferol (Vitamin D3 -) 2,000 unit PO DAILY [facility] Last Admin: 06/05/16 09:25 Dose: 2,000 unit Cyanocobalamin (Vitamin B12 -) 1,000 mcg PO DAILY [facility] Last Admin: 06/05/16 09:26 Dose: 1,000 mcg Docusate Sodium (Colace -) 300 mg PO [facility] Last Admin: 06/04/16 21:23 Dose: 300 mg Fentanyl (Sublimaze Injection -) 25 mcg IVPUSH [id number] PRN PRN Reason: PAIN Stop: 06/06/16 09:12 Ferrous Sulfate (Feosol -) 325 mg PO DAILY [facility] Last Admin: 06/05/16 09:25 Dose: 325 mg Metoprolol Succinate (Toprol Xl -) 25 mg PO DAILY [facility] Last Admin: 06/05/16 09:25 Dose: 25 mg Morphine Sulfate (Morphine Injection -) 4 mg IVPUSH Q3H PRN PRN Reason: PAIN Last Admin: 06/04/16 05:46 Dose: 4 mg Nebivolol (Bystolic -) 5 mg PO DAILY [facility] Last Admin: 06/05/16 09:25 Dose: 5 mg Ondansetron HCl (Zofran Odt -) 8 mg SL Q6H PRN PRN Reason: NAUSEA AND/OR VOMITING Pantoprazole Sodium (Protonix -) 40 mg PO DAILY [facility] Last Admin: 06/05/16 09:25 Dose: 40 mg Rosuvastatin Calcium (Crestor -) 10 mg PO [facility] Last Admin: 06/04/16 21:23 Dose: 10 mg Senna (Senna -) 1 tab PO BID [facility] Last Admin: 06/05/16 09:25 Dose: 1 tab Warfarin Sodium (Coumadin -) 4 mg PO DAILY@1800 [facility] - Objective Vital Signs: Vital Signs Temperature 98 F 06/05/16 05:50 Pulse Rate 70 06/05/16 05:50 Respiratory Rate 20 06/05/16 05:50 Blood Pressure 130/82 06/05/16 05:50 O2 Sat by Pulse Oximetry (%) 96 06/04/16 21:00 Constitutional: Yes: Calm Cardiovascular: Yes: WNL Respiratory: Yes: WNL Gastrointestinal: Yes: Normal Bowel Sounds, Soft Edema: No Labs: CBC, BMP 06/05/16 06:20 06/05/16 06:20 INR, PTT INR 1.38 (0.82-1.09) H 06/05/16 06:20 Fibrinogen 320.0 mg/dL (238-498) 06/03/16 06:00 Problem List - Problems (1) Abdominal wall hernia Code(s): K43.9 - VENTRAL HERNIA WITHOUT OBSTRUCTION OR GANGRENE (2) Afib Code(s): I48.91 - UNSPECIFIED ATRIAL FIBRILLATION Qualifiers: Atrial fibrillation type: paroxysmal Qualified Code(s): I48.0 - Paroxysmal atrial fibrillation (3) Hiatal hernia Code(s): K44.9 - DIAPHRAGMATIC HERNIA WITHOUT OBSTRUCTION OR GANGRENE (4) Hyperlipidemia Code(s): E78.5 - HYPERLIPIDEMIA, UNSPECIFIED Qualifiers: Hyperlipidemia type: pure hypercholesterolemia Qualified Code(s): E78.0 - Pure hypercholesterolemia (5) Hypertension Code(s): I10 - ESSENTIAL (PRIMARY) HYPERTENSION Qualifiers: Hypertension type: essential hypertension Qualified Code(s): I10 - Essential (primary) hypertension Assessment/Plan (1) Abdominal wall hernia Assessment/Plan: SURGICAL CONSULT NOTED S/P OR REPAIR Code(s): K43.9 - VENTRAL HERNIA WITHOUT OBSTRUCTION OR GANGRENE (2) Afib Assessment/Plan: HEME CONSULT APPRECIATED APPRECIATE CARDIO CONSULT -> Discussed with Dr. Olmstead, to resume coumadin per INR 2 days post-op to allow for adequate post-op hemostasis SQ HEPARIN STOPPED CASE D/W SURG -> WARFARIN RESTARTED NO BRIDGE Code(s): I48.91 - UNSPECIFIED ATRIAL FIBRILLATION (3) Hiatal hernia Code(s): K44.9 - DIAPHRAGMATIC HERNIA WITHOUT OBSTRUCTION OR GANGRENE (4) Hyperlipidemia Code(s): E78.5 - HYPERLIPIDEMIA, UNSPECIFIED Qualifiers: Hyperlipidemia type: pure hypercholesterolemia Qualified Code(s): E78.0 - Pure hypercholesterolemia (5) Hypertension Assessment/Plan: CONTROLLED Code(s): I10 - ESSENTIAL (PRIMARY) HYPERTENSION Qualifiers: Hypertension type: essential hypertension Qualified Code(s): I10 - Essential (primary) hypertension DISCHARGE PLAN WHEN INR >2 [employer]
[2016-06-05] MEDS ORDERED: WARFARIN NA 2 MG TABLET (UD) PO SCH (18:00)
[2016-06-05] MEDS: DOCUSATE SODIUM 100 MG CAPSULE (FP) PO SCH (21:27)
[2016-06-05] MEDS: ROSUVASTATIN CA 10 MG TABLET (FP) PO SCH (21:27)
[2016-06-06 06:02] VITALS: TEMP 97.7
[2016-06-06 07:23] LABS: BASOPHIL 0.6 % (0-2.0); EOSINOPHIL 3.8 % (0-4.5); MCH 30.5 pg (25.7-33.7); MCHC 33.5 g/dl (32.0-35.9); MEAN CELL VOLUME 91.1 fl (80-96); MEAN PLT VOLUME 8.4 fl (7.5-11.1); PLATELET COUNT 141 K/MM3 (134-434); RDW 15.7 % (11.9-15.9); WHITE BLOOD COUNT 6.5 K/mm3 (4.0-10.0)
[2016-06-06 07:40] LABS: INR 1.29 (0.82-1.09); PROTHROMBIN TIME (PATIENT) 14.3 SEC (9.98-11.88)
[2016-06-06 07:55] LABS: CALCIUM 8.8 mg/dL (8.5-10.1)
[2016-06-06 08:00] LABS: ALBUMIN 3.4 g/dl (3.4-5.0); CREATININE 1.4 mg/dL (0.7-1.3); TOT PROT 6.7 g/dl (6.4-8.2)
[2016-06-06 08:09] VITALS: BP 118/74; PULSE 61
--- NOTE | 2016-06-06 08:55 | DS ---
Physical Examination Vital Signs: Vital Signs Temperature 97.7 F 06/06/16 08:08 Pulse Rate 61 06/06/16 08:08 Respiratory Rate 18 06/06/16 08:08 Blood Pressure 118/74 06/06/16 08:08 O2 Sat by Pulse Oximetry (%) 96 06/04/16 21:00 Cardiovascular: Yes: Regular Rate and Rhythm Respiratory: Yes: Regular, CTA Bilaterally Gastrointestinal: Yes: Normal Bowel Sounds, Soft Labs: CBC, BMP 06/06/16 06:30 06/06/16 06:30 Discharge Summary Reason For Visit: ABD WALL HERNIA/DIABETES MELLITUS/CHRONIC A-FIB Current Active Problems Abdominal wall hernia (Acute) Afib (Acute) CKD (chronic kidney disease) (Acute) Chronic a-fib (Acute) Hiatal hernia (Acute) Hyperlipidemia (Acute) Hypertension (Acute) Pre-operative cardiovascular examination (Acute) Hospital Course: (1) Abdominal wall hernia Assessment/Plan: SURGICAL CONSULT NOTED S/P OR REPAIR Code(s): K43.9 - VENTRAL HERNIA WITHOUT OBSTRUCTION OR GANGRENE (2) Afib Assessment/Plan: HEME CONSULT APPRECIATED APPRECIATE CARDIO CONSULT -> Discussed with Dr. Olmstead, to resume coumadin per INR 2 days post-op to allow for adequate post-op hemostasis SQ HEPARIN STOPPED CASE D/W SURG -> WARFARIN RESTARTED NO BRIDGE Code(s): I48.91 - UNSPECIFIED ATRIAL FIBRILLATION (3) Hiatal hernia Code(s): K44.9 - DIAPHRAGMATIC HERNIA WITHOUT OBSTRUCTION OR GANGRENE (4) Hyperlipidemia Code(s): E78.5 - HYPERLIPIDEMIA, UNSPECIFIED Qualifiers: Hyperlipidemia type: pure hypercholesterolemia Qualified Code(s): E78.0 - Pure hypercholesterolemia (5) Hypertension Assessment/Plan: CONTROLLED Code(s): I10 - ESSENTIAL (PRIMARY) HYPERTENSION Qualifiers: Hypertension type: essential hypertension Qualified Code(s): I10 - Essential (primary) hypertension DISCHARGE FOLLOW INR OUTPATIENT - Instructions Diet, Activity, Other Instructions: Dr Olmstead Discharge Instructions Dear SUZAN ANDINO, Post Operative Instructions Physical activity Resume your normal everyday activity as tolerated no heavy lifting or exercise until seen by your surgeon. You may walk unlimited mary of and climb stairs. You may resume driving the car when you feel safe and comfortable behind the wheel. Wound care If you have a bandage, leave it on, and keep dry for 48-72 hours. After that time discard the outer bandage. If there are tapes on the skin under the outer bandage, leave them in place. They will peel off in the next 7 to 10 days. Do Not Peel them off. You may shower the day after surgery. If there are tapes present on the skin, you may shower over them. Diet There are no dietary restrictions. Eat healthy, high-fiber foods. Drink 6 to 8 glasses of liquid each day. This will assist in keeping your bowels are regular. Pain management You may take Tylenol or acetaminophen or Ibuprofen (for example, Motrin, Advil etc.) Any pain prescription medication ordered should be taken as prescribed for moderate to severe pain. Call Dr. Olmstead for any of the following: Severe pain not relieved by medication Fever of 101 or higher Excessive bleeding or drainage on dressing Inability to urinate Call the office at [phone] for an appointment in seven days. Referrals: Mayo Olmstead MD [Staff Physician] - Paresh Hensley MD [Primary Care Provider] - 06/08/16 - Home Medications Comprehensive Discharge Medication List: Ambulatory Orders Rabeprazole Sodium [Aciphex (Nf) 20 MG] 20 mg NR DAILY #0 tablet.ec 06/02/11 Rosuvastatin [Crestor -] 10 mg PO HS #0 tablet 06/02/11 Warfarin Na [Coumadin] 4 mg PO DAILY #0 tablet 06/02/11 Cholecalciferol (Vitamin D3) [Vitamin D3] 2,000 unit PO DAILY 05/30/16 Cyanocobalamin [Vitamin B12 -] 1,000 mcg PO DAILY 05/30/16 Ferrous Sulfate 325 mg PO DAILY 05/30/16 Metoprolol Succinate [Toprol Xl -] 25 mg PO DAILY 05/30/16 Nebivolol [Bystolic -] 5 mg PO DAILY 05/30/16 Oxycodone HCl/Acetaminophen [Percocet 5-325 mg Tablet] 1 tab PO Q6H PRN #20 tablet MDD 4 06/03/16
[2016-06-06] MEDS: CYANOCOBALAMIN 1,000 MCG TABLET (FP) PO SCH (09:30)
[2016-06-06] MEDS: FERROUS SO4 325 MG TABLET (FP) PO SCH (09:30)
[2016-06-06] MEDS: PANTOPRAZOLE 40 MG TABLET (FP) PO SCH (09:30)
[2016-06-06] MEDS: CHOLECALCIFEROL (VITAMIN D3) 1,000 UNIT TABLET (FP) PO SCH (09:30)
[2016-06-06] MEDS: METOPROLOL SUCCINATE 25 MG TAB.SR.24H (FP) PO SCH (09:30)
[2016-06-06] MEDS: SENNOSIDES 8.6MG TABLET (FP) PO SCH (09:30)
== END 2016-06-06 12:28 | disposition home or self-care (01) | DRG 355 ==
LOC: JER 15:06 → JERBED 21:44 → J6S 05-31 02:58
PROVIDERS: ADMIT Family Medicine; ATTEND Family Medicine
PROC: 8E0W0CZ Robotic Assisted Procedure of Trunk Region, Open Approach (ICD-10-PCS; 2016-06-03)
PROC: 0WUF0JZ Supplement Abdominal Wall with Synthetic Substitute, Open Approach (ICD-10-PCS; principal; 2016-06-03 12:00)
DX: K43.0 Incisional hernia with obstruction, without gangrene (principal); I48.0 Paroxysmal atrial fibrillation; E11.22 Type 2 diabetes mellitus with diabetic chronic kidney disease; I12.9 Hypertensive chronic kidney disease with stage 1 through stage 4 chronic kidney disease, or unspecified chronic kidney disease; N18.2 Chronic kidney disease, stage 2 (mild); K21.9 Gastro-esophageal reflux disease without esophagitis; D64.9 Anemia, unspecified; Z79.01 Long term (current) use of anticoagulants; E78.00 Pure hypercholesterolemia, unspecified
CPT/HCPCS: 36415; 74177-TC; 80053; 83690; 85025; 85027; 85384; 85610; 85730; 86850; 86900; 86901; 93005; 93010; 94760; 99282-25; J1644; Q9967

== ENCOUNTER 2020-07-06 04:43 | Day surgery (SDC) | payer OTHER, BC ==
[2020-07-06] MEDS ORDERED: FERRIC CARBOXYMALTOSE 750 MG in SODIUM CHLORIDE 250 ML IVPB ONE (09:00)
[2020-07-06 11:12] VITALS: BP 130/86; PULSE 55; TEMP 98.1
== END 2020-07-06 11:33 | disposition home or self-care (01) ==
LOC: JINFUSION 04:43
PROVIDERS: ATTEND Family Medicine
PROC: 3E033GC Introduction of Other Therapeutic Substance into Peripheral Vein, Percutaneous Approach (ICD-10-PCS; principal; 2020-07-06)
DX: D50.9 Iron deficiency anemia, unspecified (principal)
CPT/HCPCS: 96365; J1439

== ENCOUNTER → 2020-07-13 | Day surgery (SDC) | payer OTHER, BC ==
[~2020-07-13] MED LIST: FERRIC CARBOXYMALTOSE 750 MG in SODIUM CHLORIDE 250 ML IVPB ONE
[2020-07-13 12:31] VITALS: BP 122/77; PULSE 46; TEMP 98
== END | disposition home or self-care (01) ==
LOC: JINFUSION 05:38
PROVIDERS: ATTEND Family Medicine
PROC: 3E033GC Introduction of Other Therapeutic Substance into Peripheral Vein, Percutaneous Approach (ICD-10-PCS; principal; 2020-07-13)
DX: D50.9 Iron deficiency anemia, unspecified (principal)
CPT/HCPCS: 96365; J1439

== ENCOUNTER 2023-01-29 12:58 | Day surgery (SDC) | payer OTHER, BC ==
[2023-01-29 14:05] VITALS: BP 137/64; PULSE 67; RESP 18; TEMP 97.8
[2023-01-29] MEDS ORDERED: IRON SUCROSE COMPLEX 200 MG in SODIUM CHLORIDE 100 ML IVPB ONE (16:00)
== END 2023-01-29 15:15 | disposition home or self-care (01) ==
LOC: FINFUSION 12:58 → FM/S 12:59 → FINFUSION 15:15
PROVIDERS: ATTEND Family Medicine
PROC: 3E033GC Introduction of Other Therapeutic Substance into Peripheral Vein, Percutaneous Approach (ICD-10-PCS; principal; 2023-01-29)
DX: D50.9 Iron deficiency anemia, unspecified (principal)
CPT/HCPCS: 96365

== ENCOUNTER 2023-05-11 04:18 | Day surgery (SDC) | payer OTHER, BC ==
[2023-05-08 14:36] VITALS: BMI 24.4
[2023-05-11 09:05] VITALS: RESP 20
[2023-05-11 11:18] VITALS: BP 116/73; PULSE 50; TEMP 98
== END 2023-05-11 11:56 | disposition home or self-care (01) ==
LOC: JASU-ENDO 04:18
PROVIDERS: ATTEND Internal Medicine Gastroenterology
PROC: 0DB68ZX Excision of Stomach, Via Natural or Artificial Opening Endoscopic, Diagnostic (ICD-10-PCS; 2023-05-11)
PROC: 0DB78ZX Excision of Stomach, Pylorus, Via Natural or Artificial Opening Endoscopic, Diagnostic (ICD-10-PCS; 2023-05-11)
PROC: 0DBL8ZX Excision of Transverse Colon, Via Natural or Artificial Opening Endoscopic, Diagnostic (ICD-10-PCS; principal; 2023-05-11 09:30)
DX: Z12.11 Encounter for screening for malignant neoplasm of colon (principal); D12.3 Benign neoplasm of transverse colon; K57.30 Diverticulosis of large intestine without perforation or abscess without bleeding; K64.8 Other hemorrhoids; K44.9 Diaphragmatic hernia without obstruction or gangrene; K29.50 Unspecified chronic gastritis without bleeding; D50.9 Iron deficiency anemia, unspecified; I10 Essential (primary) hypertension; E11.9 Type 2 diabetes mellitus without complications
CPT/HCPCS: 88305-TC; 88342-TC

== ENCOUNTER 2023-11-28 11:25 | Day surgery (SDC) | payer OTHER, BC ==
[2023-11-28] MEDS: FERRIC CARBOXYMALTOSE 750 MG in SODIUM CHLORIDE 250 ML IVPB ONE (12:02)
[2023-11-28 12:58] VITALS: BP 135/78; PULSE 74; RESP 16; TEMP 98.1
== END 2023-11-28 13:03 | disposition home or self-care (01) ==
LOC: FINFUSION 11:25 → FM/S 11:26 → FINFUSION 13:03
PROVIDERS: ATTEND Family Medicine
PROC: 3E033GC Introduction of Other Therapeutic Substance into Peripheral Vein, Percutaneous Approach (ICD-10-PCS; principal; 2023-11-28)
DX: D50.9 Iron deficiency anemia, unspecified (principal)
CPT/HCPCS: 96365; J1439

== ENCOUNTER 2023-12-05 10:34 | Day surgery (SDC) | payer OTHER, BC ==
[2023-12-05] MEDS: FERRIC CARBOXYMALTOSE 750 MG in SODIUM CHLORIDE 250 ML IVPB ONE (11:31)
[2023-12-05 15:24] VITALS: BP 130/79; PULSE 71; RESP 17; TEMP 98.2
== END 2023-12-05 12:21 | disposition home or self-care (01) ==
LOC: FINFUSION 10:34 → FM/S 11:00 → FINFUSION 12:21
PROVIDERS: ATTEND Family Medicine
PROC: 3E033GC Introduction of Other Therapeutic Substance into Peripheral Vein, Percutaneous Approach (ICD-10-PCS; principal; 2023-12-05)
DX: D50.9 Iron deficiency anemia, unspecified (principal)
CPT/HCPCS: 96365; J1439